=== PATIENT | male | born 2000 | race Caucasian/White ===

== ENCOUNTER 2021-04-22 14:16 | Inpatient (IN) | payer MEDICAID ==
[~2021-04-22] VITALS: Ht 188 cm; Wt 64.6 kg
[2021-04-22] MEDS ORDERED: LORazepam 2 MG TABLET PO PRN (20:00)
[2021-04-22] MEDS ORDERED: HALOPERIDOL 5 MG TABLET PO PRN (20:00)
[2021-04-22] MEDS ORDERED: INFLUENZA VIRUS VACCINE QVS 2021-22 (6MO+)/PF 60 MCG/0.5 ML SYRINGE IM. ONE (20:00)
[2021-04-23 00:57] VITALS: BP 126/86
[2021-04-23] MEDS ORDERED: HALOPERIDOL LACTATE 5 MG/ML VIAL ONE (02:13)
[2021-04-23] MEDS ORDERED: LORazepam 2 MG/ML VIAL ONE (02:13)
[2021-04-23] MEDS ORDERED: DiphenhydrAMINE HCL 50 MG/ML VIAL ONE (02:13)
[2021-04-23] MEDS ORDERED: LORazepam 2 MG/ML VIAL IM ONE (02:15)
[2021-04-23] MEDS ORDERED: DiphenhydrAMINE HCL 50 MG/ML VIAL IM ONE (02:15)
[2021-04-23] MEDS ORDERED: HALOPERIDOL LACTATE 5 MG/ML VIAL IM ONE (02:15)
[2021-04-23 02:50] VITALS: BP 126/86
[2021-04-23] MEDS ORDERED: ONDANSETRON HCL 4 MG TABLET PO PRN (10:45)
[2021-04-23] MEDS ORDERED: BACITRACIN 28 GM OINTMENT TP PRN (10:45)
[2021-04-23] MEDS ORDERED: LOPERAMIDE HCL 2 MG CAPSULE PO PRN (10:45)
[2021-04-23] MEDS ORDERED: MAG HYDROX/AL HYDROX/SIMETH ES 30 ML SUSPENSION UDCUP PO PRN (10:45)
[2021-04-23] MEDS ORDERED: ALBUTEROL SULFATE HFA 90 MCG/PUFF 8 GM INHALER IH PRN (10:45)
[2021-04-23] MEDS ORDERED: PETROLATUM,WHITE 28 GM JELLY TP PRN (10:45)
[2021-04-23] MEDS ORDERED: DOCUSATE SODIUM 100 MG CAPSULE PO PRN (10:45)
[2021-04-23] MEDS ORDERED: OMEPRAZOLE 20 MG CAPSULE PO PRN (10:45)
[2021-04-23] MEDS ORDERED: BENZOCAINE/MENTHOL LOZENGE PO PRN (10:45)
[2021-04-23] MEDS ORDERED: CloNIDine HCL 0.1 MG TABLET PO PRN (10:45)
[2021-04-23] MEDS ORDERED: ACETAMINOPHEN 325 MG TABLET PO PRN (10:45)
[2021-04-23] MEDS ORDERED: IBUPROFEN 600 MG TABLET PO PRN (10:45)
[2021-04-23] MEDS ORDERED: MAGNESIUM HYDROXIDE SUSPENSION 30 ML UDCUP PO PRN (10:45)
[2021-04-23 16:35] VITALS: BP 114/79
[2021-04-23] MEDS: ZOLPIDEM TARTRATE 10 MG TABLET PO PRN (20:12)
[2021-04-24 00:49] VITALS: BP 114/78
[2021-04-24 07:49] LABS: APPEARANCE,URINE TURBID (CLEAR); GLUCOSE, URINE (UA) NEGATIVE (NEGATIVE); KETONES,URINE NEGATIVE (NEGATIVE); LEUKOCYTE ESTERASE ,URINE NEGATIVE (NEGATIVE); NITRATE,URINE NEGATIVE (NEGATIVE); OCCULT BLOOD,URINE NEGATIVE (NEGATIVE); PROTEIN,URINE TRACE (NEGATIVE); UROBILINOGEN,URINE 0.2 mg/dL (<=1.0)
[2021-04-24 07:55] LABS: AMPHET/METH SCREEN,URINE NEGATIVE (NEGATIVE); BARBITURATE SCREEN, URINE NEGATIVE (NEGATIVE); BENZODIAZEPINES SCREEN,URINE NEGATIVE (NEGATIVE); CANNABINOID SCREEN,URINE NEGATIVE (NEGATIVE); COCAINE SCREEN,URINE NEGATIVE (NEGATIVE); METHADONE SCREEN, URINE NEGATIVE (NEGATIVE); OPIATE SCREEN,URINE NEGATIVE (NEGATIVE)
[2021-04-24 07:59] LABS: PHENCYCLIDINE SCREEN,URINE NEGATIVE (NEGATIVE)
[2021-04-24 08:11] VITALS: BP 120/66
[2021-04-24 08:21] LABS: BILIRUBIN,URINE PRELIM. POSITIVE (NEGATIVE)
[2021-04-24 16:25] VITALS: BP 118/66
[2021-04-24] MEDS: ZOLPIDEM TARTRATE 10 MG TABLET PO PRN (22:38)
[2021-04-25 00:04] VITALS: BP 148/85
== END 2021-04-25 09:30 | disposition home or self-care (01) | DRG 750 ==
LOC: EDBD → B2S 20:01
PROVIDERS: ADMIT Psychiatry & Neurology Psychiatry; ATTEND Psychiatry & Neurology Psychiatry
DX: F25.9 Schizoaffective disorder, unspecified (principal); F32.A Depression, unspecified; F41.9 Anxiety disorder, unspecified; G47.00 Insomnia, unspecified; K59.00 Constipation, unspecified; Z20.822 Contact with and (suspected) exposure to COVID-19
CPT/HCPCS: 80307; 81003; 87081; 90686; J1200; J1630; J2060

== ENCOUNTER 2021-04-25 21:46 | Inpatient (IN) | payer MEDICAID, OTHER ==
[~2021-04-25] VITALS: Ht 188 cm; Wt 64.4 kg
[2021-04-25 22:27] LABS: BASOPHILS % (AUTO) 0.5 % (0.0-2.0); HEMATOCRIT 41.2 % (41-53); HEMOGLOBIN 14.2 g/dL (13.5-17.5); LYMPHOCYTES # (AUTO) 2.2 K/uL (1.0-4.8); LYMPHOCYTES % (AUTO) 43.6 % (22.0-44.0); MEAN CORPUSCULAR HEMOGLOBIN 30.6 pg (26.0-34.0); MEAN CORPUSCULAR HGB CONC 34.3 G/dL (31.0-37.0); MEAN CORPUSCULAR VOLUME 89 fL (80-100); MONOCYTES # (AUTO) 0.5 K/uL (0.1-1.0); MONOCYTES % (AUTO) 9.6 % (2.0-9.0); NEUTROPHILS # (AUTO) 2.2 K/uL (1.8-7.7); NEUTROPHILS % (AUTO) 45.3 % (40.0-70.0); PLATELET COUNT (AUTO) 194 K/uL (150-450); RED BLOOD CELL COUNT(AUTO) 4.62 MIL/uL (4.50-5.90); RED CELL DISTRIBUTION WIDTH 12.7 % (11.5-14.5)
[2021-04-25 22:29] LABS: COVID AG,FIA SOURCE NASOPHARYNGEAL
[2021-04-25 22:34] LABS: ANION GAP 8 mmol/L (8-16); CALCIUM, TOTAL 8.9 mg/dL (8.8-10.5); CARBON DIOXIDE 32 mmol/L (22-29); CHLORIDE 102 mmol/L (98-107); CREATININE 0.84 mg/dL (0.60-1.30); GLOMERULAR FILTR. RATE CALC > 60 mL/min (>60); GLUCOSE,RANDOM 97 mg/dL (70-110); POTASSIUM 4.4 mmol/L (3.5-5.1); SODIUM SERUM 142 mmol/L (136-145); UREA NITROGEN, BLOOD 15 mg/dL (7-18)
[2021-04-25 22:41] LABS: ALANINE AMINOTRANSFERASE 47 U/L (12-78); ALBUMIN 4.5 g/dL (3.4-5.0); ALKALINE PHOSPHATASE 66 U/L (46-116); ASPARTATE AMINOTRANSFERASE 21 U/L (15-37); BILIRUBIN,TOTAL 0.5 mg/dL (0.1-1.0); TOTAL PROTEIN, SERUM 7.9 g/dL (6.4-8.2)
[2021-04-25] MEDS ORDERED: HALOPERIDOL 5 MG TABLET PO ONE (23:30)
[2021-04-25] MEDS ORDERED: LORazepam 2 MG TABLET PO ONE (23:30)
[2021-04-26 03:00] LABS: CHOL/HDL RATIO 2.1 (4.2-7.3); CHOLESTEROL 154 mg/dL (131-200); HDL CHOLESTEROL 72 mg/dL (40-60); LDL CHOL (CALC.) 74 mg/dL (0-130); TRIGLYCERIDES 39 mg/dL (15-150)
[2021-04-26 03:52] VITALS: BP 109/70
[2021-04-26] MEDS ORDERED: INFLUENZA VIRUS VACCINE QVS 2021-22 (6MO+)/PF 60 MCG/0.5 ML SYRINGE IM. ONE (06:00)
[2021-04-26] MEDS ORDERED: PETROLATUM,WHITE 28 GM JELLY TP PRN (06:30)
[2021-04-26] MEDS ORDERED: ONDANSETRON HCL 4 MG TABLET PO PRN (06:30)
[2021-04-26] MEDS ORDERED: BENZOCAINE/MENTHOL LOZENGE PO PRN (06:30)
[2021-04-26] MEDS ORDERED: CloNIDine HCL 0.1 MG TABLET PO PRN (06:30)
[2021-04-26] MEDS ORDERED: BACITRACIN 28 GM OINTMENT TP PRN (06:30)
[2021-04-26] MEDS ORDERED: MAG HYDROX/AL HYDROX/SIMETH ES 30 ML SUSPENSION UDCUP PO PRN (06:30)
[2021-04-26] MEDS ORDERED: ALBUTEROL SULFATE HFA 90 MCG/PUFF 8 GM INHALER IH PRN (06:30)
[2021-04-26] MEDS ORDERED: LOPERAMIDE HCL 2 MG CAPSULE PO PRN (06:30)
[2021-04-26] MEDS ORDERED: ACETAMINOPHEN 325 MG TABLET PO PRN (06:30)
[2021-04-26] MEDS ORDERED: IBUPROFEN 600 MG TABLET PO PRN (06:30)
[2021-04-26] MEDS ORDERED: OMEPRAZOLE 20 MG CAPSULE PO PRN (06:30)
[2021-04-26] MEDS ORDERED: MAGNESIUM HYDROXIDE SUSPENSION 30 ML UDCUP PO PRN (06:30)
[2021-04-26] MEDS ORDERED: DOCUSATE SODIUM 100 MG CAPSULE PO PRN (06:30)
[2021-04-26 08:48] VITALS: BP 113/70
[2021-04-26] MEDS: CITALOPRAM HYDROBROMIDE 20 MG TABLET PO SCH (10:16)
[2021-04-26 16:15] VITALS: BP 116/76
[2021-04-26] MEDS: ZOLPIDEM TARTRATE 10 MG TABLET PO PRN (20:22)
[2021-04-26] MEDS: LORazepam 2 MG TABLET PO PRN (22:36)
[2021-04-27 00:15] VITALS: BP 136/87
[2021-04-27 07:42] LABS: FREE T4 (FREE THYROXINE) 1.58 ng/dL (0.76-1.46); THYROID STIMULATING HORMONE 2.06 uIU/mL (0.36-3.74)
[2021-04-27 08:33] VITALS: BP 114/70
[2021-04-27] MEDS: CITALOPRAM HYDROBROMIDE 20 MG TABLET PO SCH (08:36)
[2021-04-27] MEDS: MULTIVITAMINS WITH MINERALS, THERAPEUTIC TABLET PO SCH (08:36)
[2021-04-27 16:23] VITALS: BP 109/73
[2021-04-27] MEDS: ZOLPIDEM TARTRATE 10 MG TABLET PO PRN (20:22)
[2021-04-28] VITALS: BP 125/80
[2021-04-28] MEDS: LORazepam 2 MG TABLET PO PRN ×2 (00:01→18:16)
[2021-04-28 08:23] VITALS: BP 123/74
[2021-04-28] MEDS: CITALOPRAM HYDROBROMIDE 20 MG TABLET PO SCH (08:48)
[2021-04-28] MEDS: MULTIVITAMINS WITH MINERALS, THERAPEUTIC TABLET PO SCH (08:48)
[2021-04-28 16:34] VITALS: BP 106/75
[2021-04-28] MEDS: HALOPERIDOL 5 MG TABLET PO PRN (20:20)
[2021-04-29 00:44] VITALS: BP 119/78
[2021-04-29 08:27] VITALS: BP 120/74
[2021-04-29] MEDS: CITALOPRAM HYDROBROMIDE 20 MG TABLET PO SCH (10:46)
[2021-04-29] MEDS: MULTIVITAMINS WITH MINERALS, THERAPEUTIC TABLET PO SCH (10:46)
[2021-04-29 16:30] VITALS: BP 120/72
[2021-04-29] MEDS: ZOLPIDEM TARTRATE 10 MG TABLET PO PRN (20:01)
[2021-04-30 01:08] VITALS: BP 121/74
[2021-04-30 08:19] LABS: COVID AG,FIA SOURCE NASOPHARYNGEAL
[2021-04-30 08:29] VITALS: BP 113/60
[2021-04-30] MEDS: MULTIVITAMINS WITH MINERALS, THERAPEUTIC TABLET PO SCH (09:00)
[2021-04-30] MEDS: CITALOPRAM HYDROBROMIDE 20 MG TABLET PO SCH (09:07)
[2021-04-30] MEDS: LORazepam 2 MG TABLET PO PRN ×2 (09:08→20:06)
[2021-04-30] MEDS: HALOPERIDOL 5 MG TABLET PO PRN (10:09)
[2021-04-30 16:32] VITALS: BP 119/67
[2021-05-01 00:17] VITALS: BP 106/63
[2021-05-01 08:18] VITALS: BP 113/71
[2021-05-01] MEDS: CITALOPRAM HYDROBROMIDE 20 MG TABLET PO SCH (08:38)
[2021-05-01] MEDS: MULTIVITAMINS WITH MINERALS, THERAPEUTIC TABLET PO SCH (08:43)
[2021-05-01] MEDS: HALOPERIDOL 5 MG TABLET PO PRN (10:39)
[2021-05-01 16:22] VITALS: BP 117/72
[2021-05-01] MEDS: LORazepam 2 MG TABLET PO PRN (16:43)
[2021-05-02 00:29] VITALS: BP 121/80
[2021-05-02] MEDS: HALOPERIDOL 5 MG TABLET PO PRN (04:40)
[2021-05-02 08:20] VITALS: BP 110/61
[2021-05-02] MEDS: CITALOPRAM HYDROBROMIDE 20 MG TABLET PO SCH (08:36)
[2021-05-02] MEDS: MULTIVITAMINS WITH MINERALS, THERAPEUTIC TABLET PO SCH (08:37)
[2021-05-02] MEDS ORDERED: DiphenhydrAMINE HCL 50 MG/ML VIAL IM ONE (10:15)
[2021-05-02 16:12] VITALS: BP 130/74
[2021-05-02] MEDS: RisperiDONE 1 MG TABLET PO SCH (17:05)
[2021-05-02] MEDS: BENZTROPINE MESYLATE 1 MG TABLET PO SCH (17:05)
[2021-05-03 00:39] VITALS: BP 106/65
[2021-05-03] MEDS: ZOLPIDEM TARTRATE 10 MG TABLET PO PRN (00:43)
[2021-05-03] MEDS: LORazepam 2 MG TABLET PO PRN (00:43)
[2021-05-03 08:14] VITALS: BP 107/66
[2021-05-03] MEDS: MULTIVITAMINS WITH MINERALS, THERAPEUTIC TABLET PO SCH (09:23)
[2021-05-03] MEDS: RisperiDONE 1 MG TABLET PO SCH ×2 (09:23→16:53)
[2021-05-03] MEDS: CITALOPRAM HYDROBROMIDE 20 MG TABLET PO SCH (09:23)
[2021-05-03] MEDS: BENZTROPINE MESYLATE 1 MG TABLET PO SCH ×2 (09:23→16:53)
[2021-05-03 16:26] VITALS: BP 110/70
[2021-05-04 00:08] VITALS: BP 134/87
[2021-05-04] MEDS: LORazepam 2 MG TABLET PO PRN ×2 (00:11→09:38)
[2021-05-04] MEDS: ZOLPIDEM TARTRATE 10 MG TABLET PO PRN ×2 (00:11→22:05)
[2021-05-04 08:25] VITALS: BP 105/61
[2021-05-04] MEDS: RisperiDONE 1 MG TABLET PO SCH ×2 (09:37→16:51)
[2021-05-04] MEDS: MULTIVITAMINS WITH MINERALS, THERAPEUTIC TABLET PO SCH (09:37)
[2021-05-04] MEDS: BENZTROPINE MESYLATE 1 MG TABLET PO SCH ×2 (09:37→16:51)
[2021-05-04] MEDS: CITALOPRAM HYDROBROMIDE 20 MG TABLET PO SCH (09:37)
[2021-05-04 16:20] VITALS: BP 110/67
[2021-05-05 04:24] VITALS: BP 115/72
[2021-05-05 08:27] VITALS: BP 116/77
[2021-05-05] MEDS: MULTIVITAMINS WITH MINERALS, THERAPEUTIC TABLET PO SCH (08:33)
[2021-05-05] MEDS: CITALOPRAM HYDROBROMIDE 20 MG TABLET PO SCH (08:33)
[2021-05-05] MEDS: BENZTROPINE MESYLATE 1 MG TABLET PO SCH (08:33)
[2021-05-05] MEDS: RisperiDONE 1 MG TABLET PO SCH (08:33)
[2021-05-05] MEDS ORDERED: BENZ1TAB10 PO (12:24)
[2021-05-05] MEDS ORDERED: RISP1TAB48 PO (12:24)
[2021-05-05] MEDS ORDERED: CITA-144 PO (12:24)
== END 2021-05-05 15:43 | disposition home or self-care (01) | DRG 754 ==
LOC: EDBD 21:49 → EMS 21:49 → B2S 23:32
PROVIDERS: ADMIT Psychiatry & Neurology Psychiatry; ATTEND Psychiatry & Neurology Psychiatry
DX: F32.9 Major depressive disorder, single episode, unspecified (principal); F25.9 Schizoaffective disorder, unspecified; R45.851 Suicidal ideations; F41.9 Anxiety disorder, unspecified; G47.00 Insomnia, unspecified; K59.00 Constipation, unspecified; F12.90 Cannabis use, unspecified, uncomplicated; Z20.822 Contact with and (suspected) exposure to COVID-19
CPT/HCPCS: 80053; 80061; 83036; 84439; 84443; 85025; 87081; 99285; G0480; J1200

== ENCOUNTER 2021-05-06 10:43 | Inpatient (IN) | payer MEDICAID, OTHER ==
[~2021-05-06] VITALS: Ht 188 cm; Wt 63.2 kg
[~2021-05-06 10:43] MED LIST: BENZ1TAB10 PO; CITA-144 PO; RISP1TAB48 PO
[2021-05-06] MEDS: HALOPERIDOL 5 MG TABLET PO ONE ×2 (11:29→11:33)
[2021-05-06 11:30] LABS: COVID AG,FIA SOURCE NASOPHARYNGEAL
[2021-05-06] MEDS ORDERED: HALOPERIDOL LACTATE 5 MG/ML VIAL IM ONE ×2 (12:45→15:45)
[2021-05-06 14:13] LABS: BASOPHILS % (AUTO) 0.1 % (0.0-2.0); EOSINOPHILS % (AUTO) 0.1 % (1.0-6.0); HEMATOCRIT 43.7 % (41-53); HEMOGLOBIN 14.6 g/dL (13.5-17.5); LYMPHOCYTES # (AUTO) 0.9 K/uL (1.0-4.8); LYMPHOCYTES % (AUTO) 15.7 % (22.0-44.0); MEAN CORPUSCULAR HEMOGLOBIN 30.2 pg (26.0-34.0); MEAN CORPUSCULAR HGB CONC 33.4 G/dL (31.0-37.0); MEAN CORPUSCULAR VOLUME 91 fL (80-100); MONOCYTES # (AUTO) 0.3 K/uL (0.1-1.0); MONOCYTES % (AUTO) 6.3 % (2.0-9.0); NEUTROPHILS # (AUTO) 4.3 K/uL (1.8-7.7); NEUTROPHILS % (AUTO) 77.8 % (40.0-70.0); PLATELET COUNT (AUTO) 234 K/uL (150-450); RED BLOOD CELL COUNT(AUTO) 4.83 MIL/uL (4.50-5.90); RED CELL DISTRIBUTION WIDTH 13.2 % (11.5-14.5)
[2021-05-06 14:22] LABS: ANION GAP 9 mmol/L (8-16); CALCIUM, TOTAL 8.9 mg/dL (8.8-10.5); CARBON DIOXIDE 30 mmol/L (22-29); CHLORIDE 102 mmol/L (98-107); CREATININE 0.83 mg/dL (0.60-1.30); GLOMERULAR FILTR. RATE CALC > 60 mL/min (>60); GLUCOSE,RANDOM 94 mg/dL (70-110); POTASSIUM 4.3 mmol/L (3.5-5.1); SODIUM SERUM 141 mmol/L (136-145); UREA NITROGEN, BLOOD 15 mg/dL (7-18)
[2021-05-06 14:28] LABS: ALANINE AMINOTRANSFERASE 47 U/L (12-78); ALBUMIN 4.6 g/dL (3.4-5.0); ALKALINE PHOSPHATASE 75 U/L (46-116); ASPARTATE AMINOTRANSFERASE 30 U/L (15-37); BILIRUBIN,TOTAL 0.6 mg/dL (0.1-1.0); TOTAL PROTEIN, SERUM 8.2 g/dL (6.4-8.2)
[2021-05-06] MEDS ORDERED: HALOPERIDOL 5 MG TABLET PO PRN (15:30)
[2021-05-06] MEDS ORDERED: ZOLPIDEM TARTRATE 10 MG TABLET PO PRN (15:30)
[2021-05-06] MEDS ORDERED: DiphenhydrAMINE HCL 50 MG/ML VIAL IM ONE (15:45)
[2021-05-06] MEDS ORDERED: LORazepam 2 MG/ML VIAL IM ONE (15:45)
[2021-05-06 17:20] VITALS: BP 140/80
[2021-05-06] MEDS ORDERED: INFLUENZA VIRUS VACCINE QVS 2021-22 (6MO+)/PF 60 MCG/0.5 ML SYRINGE IM. ONE (17:30)
[2021-05-06] MEDS: BENZTROPINE MESYLATE 1 MG TABLET PO SCH (17:52)
[2021-05-06] MEDS: RisperiDONE 3 MG TABLET PO SCH (17:52)
[2021-05-07 08:03] VITALS: BP 135/96
[2021-05-07] MEDS: RisperiDONE 3 MG TABLET PO SCH ×2 (08:10→16:17)
[2021-05-07] MEDS: BENZTROPINE MESYLATE 1 MG TABLET PO SCH ×2 (08:10→16:17)
[2021-05-07] MEDS: CITALOPRAM HYDROBROMIDE 20 MG TABLET PO SCH (08:11)
[2021-05-07 16:25] VITALS: BP 108/70
[2021-05-08 08:06] VITALS: BP 112/68
[2021-05-08] MEDS: BENZTROPINE MESYLATE 1 MG TABLET PO SCH ×2 (08:17→17:12)
[2021-05-08] MEDS: RisperiDONE 3 MG TABLET PO SCH ×2 (08:17→17:11)
[2021-05-08] MEDS: CITALOPRAM HYDROBROMIDE 20 MG TABLET PO SCH (08:17)
[2021-05-08 08:26] LABS: PHOSPHORUS 4.1 mg/dL (2.5-4.9)
[2021-05-08] MEDS: MULTIVITAMINS WITH MINERALS, THERAPEUTIC TABLET PO SCH (09:00)
[2021-05-08] MEDS: THIAMINE 100 MG TABLET PO SCH (09:00)
[2021-05-08] MEDS: TRIAMCINOLONE 0.1% 15 GM OINTMENT TP SCH ×2 (09:20→17:12)
[2021-05-08] MEDS: LORazepam 2 MG TABLET PO PRN (11:39)
[2021-05-08 16:14] VITALS: BP 123/78
[2021-05-09 08:14] VITALS: BP 81/103
[2021-05-09] MEDS: CITALOPRAM HYDROBROMIDE 20 MG TABLET PO SCH (08:23)
[2021-05-09] MEDS: BENZTROPINE MESYLATE 1 MG TABLET PO SCH ×2 (08:24→16:09)
[2021-05-09] MEDS: RisperiDONE 3 MG TABLET PO SCH ×2 (08:24→16:09)
[2021-05-09] MEDS: MULTIVITAMINS WITH MINERALS, THERAPEUTIC TABLET PO SCH (08:29)
[2021-05-09] MEDS: TRIAMCINOLONE 0.1% 15 GM OINTMENT TP SCH ×2 (08:29→16:10)
[2021-05-09] MEDS: THIAMINE 100 MG TABLET PO SCH (08:29)
[2021-05-09 16:15] VITALS: BP 113/70
[2021-05-10 08:06] VITALS: BP 138/95
[2021-05-10] MEDS: TRIAMCINOLONE 0.1% 15 GM OINTMENT TP SCH ×2 (09:25→16:34)
[2021-05-10] MEDS: RisperiDONE 3 MG TABLET PO SCH ×2 (09:30→16:33)
[2021-05-10] MEDS: THIAMINE 100 MG TABLET PO SCH (09:30)
[2021-05-10] MEDS: CITALOPRAM HYDROBROMIDE 20 MG TABLET PO SCH (09:30)
[2021-05-10] MEDS: MULTIVITAMINS WITH MINERALS, THERAPEUTIC TABLET PO SCH (09:30)
[2021-05-10] MEDS: BENZTROPINE MESYLATE 1 MG TABLET PO SCH ×2 (09:31→16:33)
[2021-05-10 16:02] VITALS: BP 123/76
[2021-05-11 08:00] VITALS: BP 113/69
[2021-05-11] MEDS: CITALOPRAM HYDROBROMIDE 20 MG TABLET PO SCH ×2 (09:00→10:55)
[2021-05-11] MEDS: BENZTROPINE MESYLATE 1 MG TABLET PO SCH ×3 (09:00→13:49)
[2021-05-11] MEDS: MULTIVITAMINS WITH MINERALS, THERAPEUTIC TABLET PO SCH ×3 (09:00→13:49)
[2021-05-11] MEDS: RisperiDONE 3 MG TABLET PO SCH ×3 (09:00→13:49)
[2021-05-11] MEDS: TRIAMCINOLONE 0.1% 15 GM OINTMENT TP SCH ×3 (09:00→16:01)
[2021-05-11] MEDS: THIAMINE 100 MG TABLET PO SCH ×3 (09:00→13:48)
[2021-05-11 16:06] VITALS: BP 101/76
[2021-05-12 07:12] LABS: COVID AG,FIA SOURCE NASAL SWAB
[2021-05-12 08:32] VITALS: BP 127/74
[2021-05-12] MEDS: RisperiDONE 3 MG TABLET PO SCH ×2 (08:33→16:37)
[2021-05-12] MEDS: CITALOPRAM HYDROBROMIDE 20 MG TABLET PO SCH (08:33)
[2021-05-12] MEDS: MULTIVITAMINS WITH MINERALS, THERAPEUTIC TABLET PO SCH (08:34)
[2021-05-12] MEDS: TRIAMCINOLONE 0.1% 15 GM OINTMENT TP SCH ×2 (08:34→16:52)
[2021-05-12] MEDS: BENZTROPINE MESYLATE 1 MG TABLET PO SCH ×2 (08:34→16:37)
[2021-05-12] MEDS: THIAMINE 100 MG TABLET PO SCH (08:34)
[2021-05-12 16:04] VITALS: BP 112/76
[2021-05-13] MEDS: BENZTROPINE MESYLATE 1 MG TABLET PO SCH ×2 (08:14→16:39)
[2021-05-13] MEDS: RisperiDONE 3 MG TABLET PO SCH ×2 (08:14→16:39)
[2021-05-13] MEDS: CITALOPRAM HYDROBROMIDE 20 MG TABLET PO SCH (08:14)
[2021-05-13] MEDS: THIAMINE 100 MG TABLET PO SCH (08:14)
[2021-05-13 08:15] VITALS: BP 105/67
[2021-05-13] MEDS: TRIAMCINOLONE 0.1% 15 GM OINTMENT TP SCH ×2 (08:23→16:39)
[2021-05-13] MEDS: MULTIVITAMINS WITH MINERALS, THERAPEUTIC TABLET PO SCH (08:24)
[2021-05-13 16:09] VITALS: BP 104/66
[2021-05-14] MEDS: LORazepam 2 MG TABLET PO PRN (03:21)
[2021-05-14] MEDS: RisperiDONE 3 MG TABLET PO SCH ×2 (10:02→17:16)
[2021-05-14] MEDS: TRIAMCINOLONE 0.1% 15 GM OINTMENT TP SCH ×2 (10:02→17:17)
[2021-05-14] MEDS: BENZTROPINE MESYLATE 1 MG TABLET PO SCH ×2 (10:02→17:16)
[2021-05-14] MEDS: THIAMINE 100 MG TABLET PO SCH (10:02)
[2021-05-14] MEDS: MULTIVITAMINS WITH MINERALS, THERAPEUTIC TABLET PO SCH (10:02)
[2021-05-14] MEDS: CITALOPRAM HYDROBROMIDE 20 MG TABLET PO SCH (10:02)
[2021-05-14 16:27] VITALS: BP 104/65
[2021-05-15 08:55] VITALS: BP 131/77
[2021-05-15] MEDS: MULTIVITAMINS WITH MINERALS, THERAPEUTIC TABLET PO SCH (09:00)
[2021-05-15] MEDS: RisperiDONE 3 MG TABLET PO SCH ×2 (09:30→16:33)
[2021-05-15] MEDS: CITALOPRAM HYDROBROMIDE 20 MG TABLET PO SCH (09:30)
[2021-05-15] MEDS: BENZTROPINE MESYLATE 1 MG TABLET PO SCH ×2 (09:30→16:33)
[2021-05-15] MEDS: TRIAMCINOLONE 0.1% 15 GM OINTMENT TP SCH ×2 (09:32→16:43)
[2021-05-15] MEDS: THIAMINE 100 MG TABLET PO SCH (09:32)
[2021-05-15] MEDS: LORazepam 2 MG TABLET PO PRN (14:56)
[2021-05-15 16:30] VITALS: BP 149/79
[2021-05-16 08:01] VITALS: BP 115/69
[2021-05-16] MEDS: THIAMINE 100 MG TABLET PO SCH (08:40)
[2021-05-16] MEDS: BENZTROPINE MESYLATE 1 MG TABLET PO SCH (08:40)
[2021-05-16] MEDS: MULTIVITAMINS WITH MINERALS, THERAPEUTIC TABLET PO SCH (08:40)
[2021-05-16] MEDS: RisperiDONE 3 MG TABLET PO SCH (08:40)
[2021-05-16] MEDS: CITALOPRAM HYDROBROMIDE 20 MG TABLET PO SCH (08:40)
[2021-05-16] MEDS: TRIAMCINOLONE 0.1% 15 GM OINTMENT TP SCH (08:41)
== END 2021-05-16 13:15 | disposition home or self-care (01) | DRG 750 ==
LOC: EMS 10:47 → 3EC 16:37
PROVIDERS: ADMIT Psychiatry & Neurology Psychiatry; ATTEND Psychiatry & Neurology Psychiatry
DX: F25.9 Schizoaffective disorder, unspecified (principal); R45.851 Suicidal ideations; G47.00 Insomnia, unspecified; K59.00 Constipation, unspecified; F41.9 Anxiety disorder, unspecified; F17.200 Nicotine dependence, unspecified, uncomplicated; Z20.822 Contact with and (suspected) exposure to COVID-19; F19.10 Other psychoactive substance abuse, uncomplicated; Z71.51 Drug abuse counseling and surveillance of drug abuser; Z71.6 Tobacco abuse counseling
CPT/HCPCS: 80053; 83735; 84100; 85025; 87081; 99285; G0480; J1200; J1630; J2060

== ENCOUNTER 2021-06-28 16:48 | Inpatient (IN) | payer MEDICAID, OTHER ==
[~2021-06-28] VITALS: Ht 188 cm; Wt 68.5 kg
[~2021-06-28 16:48] MED LIST changes: -CITA-144 PO; +OLAN10TA74 PO; +OLAN5TAB52 PO; -RISP1TAB48 PO
[2021-06-28 18:09] LABS: BASOPHILS % (AUTO) 0.4 % (0.0-2.0); HEMATOCRIT 39.9 % (41-53); HEMOGLOBIN 14.1 g/dL (13.5-17.5); LYMPHOCYTES # (AUTO) 1.7 K/uL (1.0-4.8); LYMPHOCYTES % (AUTO) 27.5 % (22.0-44.0); MEAN CORPUSCULAR HEMOGLOBIN 30.9 pg (26.0-34.0); MEAN CORPUSCULAR HGB CONC 35.4 G/dL (31.0-37.0); MEAN CORPUSCULAR VOLUME 87 fL (80-100); MONOCYTES # (AUTO) 0.3 K/uL (0.1-1.0); MONOCYTES % (AUTO) 5.1 % (2.0-9.0); PLATELET COUNT (AUTO) 185 K/uL (150-450); RED BLOOD CELL COUNT(AUTO) 4.58 MIL/uL (4.50-5.90); RED CELL DISTRIBUTION WIDTH 12.6 % (11.5-14.5)
[2021-06-28 18:17] LABS: ANION GAP 8 mmol/L (8-16); CALCIUM, TOTAL 8.7 mg/dL (8.8-10.5); CARBON DIOXIDE 31 mmol/L (22-29); CHLORIDE 105 mmol/L (98-107); CREATININE 0.74 mg/dL (0.60-1.30); GLOMERULAR FILTR. RATE CALC > 60 mL/min (>60); GLUCOSE,RANDOM 154 mg/dL (70-110); POTASSIUM 3.8 mmol/L (3.5-5.1); SODIUM SERUM 144 mmol/L (136-145); UREA NITROGEN, BLOOD 16 mg/dL (7-18)
[2021-06-28 18:22] LABS: ALANINE AMINOTRANSFERASE 97 U/L (12-78); ALBUMIN 4.1 g/dL (3.4-5.0); ALKALINE PHOSPHATASE 70 U/L (46-116); ASPARTATE AMINOTRANSFERASE 18 U/L (15-37); BILIRUBIN,TOTAL 0.3 mg/dL (0.1-1.0); TOTAL PROTEIN, SERUM 7.7 g/dL (6.4-8.2)
[2021-06-28 20:36] LABS: COVID AG,FIA SOURCE NASOPHARYNGEAL
[2021-06-28] MEDS ORDERED: LORazepam 2 MG TABLET PO PRN (21:00)
[2021-06-28] MEDS ORDERED: OLANZapine 5 MG RAPDIS TABLET PO PRN (21:00)
[2021-06-28] MEDS ORDERED: ZOLPIDEM TARTRATE 10 MG TABLET PO PRN (21:00)
[2021-06-29 00:47] LABS: AMPHET/METH SCREEN,URINE NEGATIVE (NEGATIVE); APPEARANCE,URINE CLEAR (CLEAR); BARBITURATE SCREEN, URINE NEGATIVE (NEGATIVE); BENZODIAZEPINES SCREEN,URINE NEGATIVE (NEGATIVE); BILIRUBIN,URINE NEGATIVE (NEGATIVE); CANNABINOID SCREEN,URINE NEGATIVE (NEGATIVE); COCAINE SCREEN,URINE NEGATIVE (NEGATIVE); GLUCOSE, URINE (UA) NEGATIVE (NEGATIVE); KETONES,URINE NEGATIVE (NEGATIVE); LEUKOCYTE ESTERASE ,URINE NEGATIVE (NEGATIVE); METHADONE SCREEN, URINE NEGATIVE (NEGATIVE); NITRATE,URINE NEGATIVE (NEGATIVE); OCCULT BLOOD,URINE NEGATIVE (NEGATIVE); OPIATE SCREEN,URINE NEGATIVE (NEGATIVE); PROTEIN,URINE NEGATIVE (NEGATIVE); UROBILINOGEN,URINE 0.2 mg/dL (<=1.0)
[2021-06-29 00:51] LABS: PHENCYCLIDINE SCREEN,URINE NEGATIVE (NEGATIVE)
[2021-06-29 02:21] LABS: CHOL/HDL RATIO 2.6 (4.2-7.3); CHOLESTEROL 162 mg/dL (131-200); HDL CHOLESTEROL 62 mg/dL (40-60); LDL CHOL (CALC.) 90 mg/dL (0-130); TRIGLYCERIDES 51 mg/dL (15-150)
[2021-06-29 02:42] VITALS: BP 128/77
[2021-06-29] MEDS ORDERED: INFLUENZA VIRUS VACCINE QVS 2021-22 (6MO+)/PF 60 MCG/0.5 ML SYRINGE IM. ONE (04:15)
[2021-06-29 08:16] VITALS: BP 110/67
[2021-06-29] MEDS ORDERED: TUBERCULIN, PURIFIED PROTEIN DERIVATIVE 5 TU/0.1 ML SYRINGE ID ONE (10:00)
[2021-06-29] MEDS ORDERED: LOPERAMIDE HCL 2 MG CAPSULE PO PRN (10:00)
[2021-06-29] MEDS ORDERED: PROMETHAZINE HCL 25 MG TABLET PO PRN (10:00)
[2021-06-29] MEDS ORDERED: MAG HYDROX/AL HYDROX/SIMETH ES 30 ML SUSPENSION UDCUP PO PRN (10:00)
[2021-06-29] MEDS ORDERED: FluPHENAZine HCL 5 MG TABLET PO PRN (10:00)
[2021-06-29] MEDS ORDERED: GuaiFENesin/D-METHORPHAN [SUGAR-FREE] 200-20MG/10 ML SYRUP UDCUP PO PRN (10:00)
[2021-06-29] MEDS ORDERED: FluPHENAZine DECANOATE 25 MG/ML IM ONE (10:00)
[2021-06-29] MEDS ORDERED: ACETAMINOPHEN 325 MG TABLET PO PRN (10:00)
[2021-06-29] MEDS ORDERED: MAGNESIUM HYDROXIDE SUSPENSION 30 ML UDCUP PO PRN (10:00)
[2021-06-29] MEDS ORDERED: HydrOXYzine PAMOATE 50 MG CAPSULE PO PRN (10:00)
[2021-06-29 16:17] VITALS: BP 115/70
[2021-06-29] MEDS: TRIHEXYPHENIDYL HCL 5 MG TABLET PO SCH (16:48)
[2021-06-29] MEDS: THIAMINE 100 MG TABLET PO SCH (16:48)
[2021-06-29] MEDS: MELATONIN 5 MG TABLET PO SCH (20:41)
[2021-06-29] MEDS ORDERED: FluPHENAZine HCL 10 MG TABLET PO SCH (21:00)
[2021-06-30 00:50] VITALS: BP 102/63
[2021-06-30 07:44] LABS: CHOL/HDL RATIO 2.4 (4.2-7.3); FREE T4 (FREE THYROXINE) 1.21 ng/dL (0.76-1.46); THYROID STIMULATING HORMONE 3.62 uIU/mL (0.36-3.74)
[2021-06-30 08:21] VITALS: BP 121/73
[2021-06-30] MEDS: THIAMINE 100 MG TABLET PO SCH ×2 (09:41→16:37)
[2021-06-30] MEDS: FOLIC ACID 1 MG TABLET PO SCH (09:41)
[2021-06-30] MEDS: TRIHEXYPHENIDYL HCL 5 MG TABLET PO SCH ×3 (09:41→16:37)
[2021-06-30] MEDS: MULTIVITAMINS WITH MINERALS, THERAPEUTIC TABLET PO SCH (09:42)
[2021-06-30] MEDS: NALTREXONE HCL 50 MG TABLET PO SCH (09:42)
[2021-06-30] MEDS: FLUoxetine HCL 20 MG CAPSULE PO SCH (09:42)
[2021-06-30] MEDS: OMEGA-3/DHA/EPA/FISH OIL 1,000 MG CAPSULE PO SCH (09:42)
[2021-06-30] MEDS ORDERED: OMEG-135 PO (15:57)
[2021-06-30] MEDS ORDERED: PROZ20 PO (15:57)
[2021-06-30] MEDS ORDERED: NALT50TA PO (15:57)
[2021-06-30] MEDS ORDERED: TRIH5TAB3 PO (15:57)
[2021-06-30] MEDS ORDERED: FLUP10TA8 PO (15:57)
[2021-06-30] MEDS ORDERED: FLUD25I IM (15:57)
[2021-06-30] MEDS ORDERED: MELA5TAB40 PO (15:57)
[2021-06-30 16:17] VITALS: BP 120/78
[2021-06-30] MEDS: MELATONIN 5 MG TABLET PO SCH (20:38)
[2021-06-30] MEDS ORDERED: FluPHENAZine HCL 10 MG TABLET PO SCH (21:00)
[2021-07-01 00:26] VITALS: BP 118/71
[2021-07-01 08:29] VITALS: BP 109/77
[2021-07-01 08:41] LABS: GLUCOMETER DEV NAME(LOC) BV2S.; GLUCOSE,POINT OF CARE 92 MG/DL (70-110)
[2021-07-01] MEDS: FLUoxetine HCL 20 MG CAPSULE PO SCH (08:57)
[2021-07-01] MEDS: TRIHEXYPHENIDYL HCL 5 MG TABLET PO SCH (08:57)
[2021-07-01] MEDS: MULTIVITAMINS WITH MINERALS, THERAPEUTIC TABLET PO SCH (08:57)
[2021-07-01] MEDS: NALTREXONE HCL 50 MG TABLET PO SCH (08:57)
[2021-07-01] MEDS: THIAMINE 100 MG TABLET PO SCH (08:57)
[2021-07-01] MEDS: FOLIC ACID 1 MG TABLET PO SCH (08:57)
[2021-07-01] MEDS: OMEGA-3/DHA/EPA/FISH OIL 1,000 MG CAPSULE PO SCH (08:57)
[2021-07-13] MEDS ORDERED: FluPHENAZine DECANOATE 25 MG/ML IM SCH (09:00)
== END 2021-07-01 10:35 | disposition home or self-care (01) | DRG 750 ==
LOC: EMS 16:49 → B2S 21:00
PROVIDERS: ADMIT Psychiatry & Neurology Psychiatry; ATTEND Psychiatry & Neurology Psychiatry
DX: F25.1 Schizoaffective disorder, depressive type (principal); R45.851 Suicidal ideations; Z91.14 Patient's other noncompliance with medication regimen; F17.210 Nicotine dependence, cigarettes, uncomplicated; Z20.822 Contact with and (suspected) exposure to COVID-19; Z55.9 Problems related to education and literacy, unspecified; Z59.9 Problem related to housing and economic circumstances, unspecified; Z63.9 Problem related to primary support group, unspecified; Z65.3 Problems related to other legal circumstances; Z88.8 Allergy status to other drugs, medicaments and biological substances
CPT/HCPCS: 80053; 80061; 81003; 82962; 84439; 84443; 85025; 86592; 99285; G0480; J2680; Q9967

== ENCOUNTER 2021-08-12 20:50 | Outpatient (CLI) | payer OTHER ==
[~2021-08-12 20:50] MED LIST changes: -BENZ1TAB10 PO; +FLUD25I IM; +FLUP10TA8 PO; +MELA5TAB40 PO; +NALT50TA PO; -OLAN10TA74 PO; -OLAN5TAB52 PO; +OMEG-108 PO; +PROZ20 PO; +TRIH5TAB3 PO
[2021-08-12 22:16] LABS: GLUCOMETER DEV NAME(LOC) POC.BV
== END 2021-08-12 22:50 | disposition left against medical advice (07) ==
LOC: CSU 20:50
PROVIDERS: ATTEND Psychiatry & Neurology Psychiatry
DX: R44.0 Auditory hallucinations (principal); F34.9 Persistent mood [affective] disorder, unspecified; F41.9 Anxiety disorder, unspecified; Z20.822 Contact with and (suspected) exposure to COVID-19; Z72.89 Other problems related to lifestyle; Z88.8 Allergy status to other drugs, medicaments and biological substances
CPT/HCPCS: 90792

== ENCOUNTER 2021-08-13 06:29 | Emergency (ER) | payer OTHER ==
[~2021-08-13] VITALS: Ht 188 cm; Wt 69.1 kg
[~2021-08-13 06:29] MED LIST changes: -OMEG-108 PO; +OMEG-135 PO
[2021-08-13 07:42] LABS: BASOPHILS % (AUTO) 0.2 % (0.0-2.0); EOSINOPHILS % (AUTO) 0.4 % (1.0-6.0); HEMOGLOBIN 13.8 g/dL (13.5-17.5); LYMPHOCYTES # (AUTO) 0.7 K/uL (1.0-4.8); LYMPHOCYTES % (AUTO) 12.3 % (22.0-44.0); MEAN CORPUSCULAR HEMOGLOBIN 30.8 pg (26.0-34.0); MEAN CORPUSCULAR HGB CONC 35.5 G/dL (31.0-37.0); MEAN CORPUSCULAR VOLUME 87 fL (80-100); MONOCYTES # (AUTO) 0.4 K/uL (0.1-1.0); MONOCYTES % (AUTO) 6.7 % (2.0-9.0); NEUTROPHILS # (AUTO) 4.6 K/uL (1.8-7.7); NEUTROPHILS % (AUTO) 80.4 % (40.0-70.0); PLATELET COUNT (AUTO) 182 K/uL (150-450); RED BLOOD CELL COUNT(AUTO) 4.49 MIL/uL (4.50-5.90); RED CELL DISTRIBUTION WIDTH 12.2 % (11.5-14.5)
[2021-08-13] MEDS ORDERED: OLANZapine 5 MG RAPDIS TABLET PO ONE (07:45)
[2021-08-13 07:51] LABS: ANION GAP 6 mmol/L (8-16); CALCIUM, TOTAL 9.2 mg/dL (8.8-10.5); CARBON DIOXIDE 32 mmol/L (22-29); CHLORIDE 101 mmol/L (98-107); CREATININE 0.74 mg/dL (0.60-1.30); GLOMERULAR FILTR. RATE CALC > 60 mL/min (>60); GLUCOSE,RANDOM 114 mg/dL (70-110); POTASSIUM 4.2 mmol/L (3.5-5.1); SODIUM SERUM 139 mmol/L (136-145); UREA NITROGEN, BLOOD 18 mg/dL (7-18)
[2021-08-13 08:02] LABS: ALANINE AMINOTRANSFERASE 46 U/L (12-78); ALBUMIN 4.5 g/dL (3.4-5.0); ALKALINE PHOSPHATASE 71 U/L (46-116); ASPARTATE AMINOTRANSFERASE 16 U/L (15-37); BILIRUBIN,TOTAL 0.6 mg/dL (0.1-1.0); TOTAL PROTEIN, SERUM 8.2 g/dL (6.4-8.2)
[2021-08-13 08:09] VITALS: BP 115/76
== END 2021-08-13 08:24 | disposition home or self-care (01) ==
LOC: EMS 06:29
DX: F20.9 Schizophrenia, unspecified (principal); Z88.8 Allergy status to other drugs, medicaments and biological substances; Z79.899 Other long term (current) drug therapy
CPT/HCPCS: 36415; 80053; 85025; 99284; G0480

== ENCOUNTER 2023-04-14 22:55 | Inpatient (IN) | payer MEDICAID ==
[~2023-04-14] VITALS: Ht 188 cm; Wt 107.3 kg
[~2023-04-14 22:55] MED LIST changes: -FLUD25I IM; +FLUP25VI5 IM
[2023-04-14 23:39] LABS: BASOPHILS % (AUTO) 0.3 % (0.0-2.0); EOSINOPHILS % (AUTO) 0.6 % (1.0-6.0); HEMATOCRIT 41.2 % (41-53); LYMPHOCYTES # (AUTO) 1.8 K/uL (1.0-4.8); LYMPHOCYTES % (AUTO) 25.5 % (22.0-44.0); MEAN CORPUSCULAR HEMOGLOBIN 30.1 pg (26.0-34.0); MEAN CORPUSCULAR VOLUME 89 fL (80-100); MONOCYTES # (AUTO) 0.6 K/uL (0.1-1.0); MONOCYTES % (AUTO) 8.1 % (2.0-9.0); NEUTROPHILS # (AUTO) 4.6 K/uL (1.8-7.7); NEUTROPHILS % (AUTO) 65.5 % (40.0-70.0); PLATELET COUNT (AUTO) 267 K/uL (150-450); RED BLOOD CELL COUNT(AUTO) 4.66 MIL/uL (4.50-5.90); RED CELL DISTRIBUTION WIDTH 13.4 % (11.5-14.5); WHITE BLOOD COUNT (AUTO) 7.1 K/uL (4.5-11.0)
[2023-04-14 23:50] LABS: ANION GAP 12 mmol/L (8-16); CALCIUM, TOTAL 8.9 mg/dL (8.8-10.5); CARBON DIOXIDE 27 mmol/L (22-29); CHLORIDE 104 mmol/L (98-107); CREATININE 0.84 mg/dL (0.60-1.30); GLOMERULAR FILTR. RATE CALC > 60 mL/min (>60); GLUCOSE,RANDOM 100 mg/dL (70-110); POTASSIUM 3.8 mmol/L (3.5-5.1); SODIUM SERUM 143 mmol/L (136-145); UREA NITROGEN, BLOOD 18 mg/dL (7-18)
[2023-04-14 23:52] LABS: ALCOHOL, BLOOD (SERUM) < 3 mg/dL (0-10)
[2023-04-14 23:55] LABS: ALANINE AMINOTRANSFERASE 150 U/L (12-78); ALBUMIN 4.2 g/dL (3.4-5.0); ALKALINE PHOSPHATASE 96 U/L (46-116); ASPARTATE AMINOTRANSFERASE 58 U/L (15-37); BILIRUBIN,TOTAL 0.6 mg/dL (0.1-1.0); TOTAL PROTEIN, SERUM 8.4 g/dL (6.4-8.2)
[2023-04-15] MEDS ORDERED: OLANZapine 5 MG RAPDIS TABLET PO PRN (00:30)
[2023-04-15] MEDS ORDERED: LORazepam 2 MG TABLET PO PRN (00:30)
[2023-04-15] MEDS ORDERED: ZOLPIDEM TARTRATE 10 MG TABLET PO PRN (00:30)
[2023-04-15] MEDS ORDERED: ARIP15TA27 PO (00:52)
[2023-04-15 01:30] LABS: COVID AG,FIA SOURCE NASAL SWAB
[2023-04-15 01:37] LABS: SARS-COV2 (COVID) ANTIGEN,FIA Negative (Negative)
[2023-04-15 02:45] VITALS: BP 135/80; PULSE 86; RESP 18; TEMP 97.2
[2023-04-15] MEDS ORDERED: INFLUENZA VIRUS VACCINE QVS 2023-24 (6MO+)/PF 60 MCG/0.5 ML SYRINGE IM. ONE (04:30)
[2023-04-15 08:42] VITALS: BP 137/89; PULSE 99; RESP 16; TEMP 98.9
[2023-04-15] MEDS ORDERED: FLUO20CA36 PO (13:00)
[2023-04-15] MEDS: ARIPiprazole 15 MG TABLET PO SCH (14:05)
[2023-04-15] MEDS: FLUoxetine HCL 20 MG CAPSULE PO SCH (14:05)
[2023-04-15] MEDS: FluPHENAZine HCL 10 MG TABLET PO SCH ×2 (14:23→21:15)
[2023-04-15 21:58] VITALS: BP 134/82; PULSE 88; RESP 16; TEMP 97.4
[2023-04-16] MEDS: FluPHENAZine HCL 10 MG TABLET PO SCH ×2 (10:49→21:22)
[2023-04-16] MEDS: ARIPiprazole 15 MG TABLET PO SCH (10:50)
[2023-04-16] MEDS: FLUoxetine HCL 20 MG CAPSULE PO SCH (10:50)
[2023-04-16 13:36] VITALS: BP 151/89; PULSE 87; RESP 16; TEMP 97.7
[2023-04-17 12:08] VITALS: BP 127/80; PULSE 88; RESP 18; TEMP 97
[2023-04-17] MEDS: FLUoxetine HCL 20 MG CAPSULE PO SCH (12:14)
[2023-04-17] MEDS: FluPHENAZine HCL 10 MG TABLET PO SCH ×2 (12:14→21:01)
[2023-04-17] MEDS: ARIPiprazole 15 MG TABLET PO SCH (12:14)
[2023-04-17 21:52] VITALS: BP 150/100; PULSE 81; RESP 19; TEMP 97.5
[2023-04-18] MEDS: FluPHENAZine HCL 10 MG TABLET PO SCH (08:45)
[2023-04-18] MEDS: FLUoxetine HCL 20 MG CAPSULE PO SCH (08:46)
[2023-04-18] MEDS: ARIPiprazole 15 MG TABLET PO SCH (08:46)
[2023-04-18 10:05] VITALS: BP 137/76; PULSE 87; RESP 16; TEMP 98.4
== END 2023-04-18 14:43 | disposition home or self-care (01) | DRG 750 ==
LOC: EMS 22:56 → 3EC 04-15 01:53
PROVIDERS: ADMIT Psychiatry & Neurology Child & Adolescent Psychiatry; ATTEND Psychiatry & Neurology Child & Adolescent Psychiatry
DX: F25.1 Schizoaffective disorder, depressive type (principal); R45.851 Suicidal ideations; Z20.822 Contact with and (suspected) exposure to COVID-19; F41.9 Anxiety disorder, unspecified; G47.00 Insomnia, unspecified; R74.01 Elevation of levels of liver transaminase levels; Z88.8 Allergy status to other drugs, medicaments and biological substances; Z59.00 Homelessness unspecified
CPT/HCPCS: 80053; 84443; 85025; 99285; G0480

== ENCOUNTER 2023-05-07 02:54 | Inpatient (IN) | payer MEDICAID, OTHER ==
[~2023-05-07] VITALS: Ht 182.9 cm; Wt 103.4 kg
[~2023-05-07 02:54] MED LIST changes: +ARIP15TA27 PO; +FLUO20CA36 PO; -PROZ20 PO
[2023-05-07] MEDS ORDERED: LORazepam 2 MG TABLET PO PRN (05:15)
[2023-05-07] MEDS ORDERED: ZOLPIDEM TARTRATE 10 MG TABLET PO PRN (05:15)
[2023-05-07 05:31] LABS: BASOPHILS % (AUTO) 0.4 % (0.0-2.0); HEMATOCRIT 42.4 % (41-53); HEMOGLOBIN 14.4 g/dL (13.5-17.5); LYMPHOCYTES # (AUTO) 1.6 K/uL (1.0-4.8); LYMPHOCYTES % (AUTO) 22.2 % (22.0-44.0); MEAN CORPUSCULAR HEMOGLOBIN 30.3 pg (26.0-34.0); MEAN CORPUSCULAR HGB CONC 33.9 G/dL (31.0-37.0); MEAN CORPUSCULAR VOLUME 89 fL (80-100); MONOCYTES # (AUTO) 0.5 K/uL (0.1-1.0); MONOCYTES % (AUTO) 7.5 % (2.0-9.0); NEUTROPHILS % (AUTO) 68.9 % (40.0-70.0); PLATELET COUNT (AUTO) 267 K/uL (150-450); RED BLOOD CELL COUNT(AUTO) 4.75 MIL/uL (4.50-5.90); RED CELL DISTRIBUTION WIDTH 13.8 % (11.5-14.5); WHITE BLOOD COUNT (AUTO) 7.2 K/uL (4.5-11.0)
[2023-05-07 05:35] LABS: ANION GAP 5 mmol/L (8-16); CALCIUM, TOTAL 8.9 mg/dL (8.8-10.5); CARBON DIOXIDE 31 mmol/L (22-29); CHLORIDE 103 mmol/L (98-107); CREATININE 0.87 mg/dL (0.60-1.30); GLOMERULAR FILTR. RATE CALC > 60 mL/min (>60); GLUCOSE,RANDOM 105 mg/dL (70-110); POTASSIUM 3.9 mmol/L (3.5-5.1); SODIUM SERUM 139 mmol/L (136-145); UREA NITROGEN, BLOOD 13 mg/dL (7-18)
[2023-05-07 05:39] LABS: ALCOHOL, BLOOD (SERUM) < 3 mg/dL (0-10)
[2023-05-07 05:42] LABS: ALANINE AMINOTRANSFERASE 103 U/L (12-78); ALBUMIN 3.8 g/dL (3.4-5.0); ALKALINE PHOSPHATASE 88 U/L (46-116); ASPARTATE AMINOTRANSFERASE 27 U/L (15-37); BILIRUBIN,TOTAL 0.2 mg/dL (0.1-1.0); TOTAL PROTEIN, SERUM 7.9 g/dL (6.4-8.2)
[2023-05-07 07:40] LABS: COVID AG,FIA SOURCE NASAL SWAB
[2023-05-07 08:15] LABS: SARS-COV2 (COVID) ANTIGEN,FIA Negative (Negative)
[2023-05-07] MEDS ORDERED: INFLUENZA VIRUS VACCINE QVS 2023-24 (6MO+)/PF 60 MCG/0.5 ML SYRINGE IM. ONE (22:30)
[2023-05-07 23:13] VITALS: BP 126/79; PULSE 78; RESP 18; TEMP 97.3; O2SAT 100
[2023-05-08 08:53] VITALS: BP 129/88; PULSE 100; RESP 18; TEMP 98.2; O2SAT 94
[2023-05-08] MEDS: FluPHENAZine HCL 10 MG TABLET PO SCH ×2 (09:45→21:00)
[2023-05-08] MEDS: ARIPiprazole 15 MG TABLET PO SCH (09:45)
[2023-05-08] MEDS: FLUoxetine HCL 20 MG CAPSULE PO SCH (09:45)
[2023-05-08] MEDS ORDERED: ALBUTEROL SULFATE HFA 90 MCG/PUFF 8 GM INHALER IH PRN (14:00)
[2023-05-08] MEDS ORDERED: MAG HYDROX/ALUMINUM HYD/SIMETH ES 30 ML SUSPENSION UDCUP PO PRN (14:00)
[2023-05-08] MEDS ORDERED: GuaiFENesin/D-METHORPHAN [SUGAR-FREE] 200-20MG/10 ML SYRUP UDCUP PO PRN (14:00)
[2023-05-08] MEDS ORDERED: ONDANSETRON HCL 4 MG TABLET PO PRN (14:00)
[2023-05-08] MEDS ORDERED: DOCUSATE SODIUM 100 MG CAPSULE PO PRN (14:00)
[2023-05-08] MEDS ORDERED: IBUPROFEN 400 MG TABLET PO PRN (14:00)
[2023-05-08] MEDS ORDERED: MAGNESIUM HYDROXIDE SUSPENSION 30 ML UDCUP PO PRN (14:00)
[2023-05-08] MEDS ORDERED: LOPERAMIDE HCL 2 MG CAPSULE PO PRN (14:00)
[2023-05-08] MEDS ORDERED: NICOTINE 14 MG/24 HOUR PATCH TD PRN (14:00)
[2023-05-08] MEDS ORDERED: PETROLATUM,WHITE 28 GM JELLY TP PRN (14:00)
[2023-05-08] MEDS ORDERED: CloNIDine HCL 0.1 MG TABLET PO PRN (14:00)
[2023-05-08] MEDS ORDERED: ACETAMINOPHEN 325 MG TABLET PO PRN (14:00)
[2023-05-08 20:19] VITALS: RESP 20; TEMP 98
[2023-05-08] MEDS: MELATONIN 5 MG TABLET PO SCH (21:00)
[2023-05-09] MEDS: FLUoxetine HCL 20 MG CAPSULE PO SCH ×3 (09:00→12:51)
[2023-05-09] MEDS: OMEGA-3/DHA/EPA/FISH OIL 1,000 MG CAPSULE PO SCH ×4 (09:00→12:56)
[2023-05-09] MEDS: ARIPiprazole 15 MG TABLET PO SCH ×6 (09:00→13:00)
[2023-05-09] MEDS: FluPHENAZine HCL 10 MG TABLET PO SCH ×4 (09:00→12:52)
[2023-05-09 13:14] VITALS: RESP 17
[2023-05-09 20:12] VITALS: RESP 18; TEMP 98.1; O2SAT 98
[2023-05-09] MEDS: MELATONIN 5 MG TABLET PO SCH (21:00)
[2023-05-10] MEDS: OMEGA-3/DHA/EPA/FISH OIL 1,000 MG CAPSULE PO SCH (09:00)
[2023-05-10] MEDS: ARIPiprazole 15 MG TABLET PO SCH (09:00)
[2023-05-10] MEDS ORDERED: HALOPERIDOL LACTATE 5 MG/ML VIAL ONE (11:36)
[2023-05-10] MEDS ORDERED: LORazepam 2 MG/ML VIAL ONE (11:36)
[2023-05-10] MEDS ORDERED: DiphenhydrAMINE HCL 50 MG/ML VIAL ONE (11:36)
[2023-05-10] MEDS ORDERED: LORazepam 2 MG/ML VIAL IM ONE (11:45)
[2023-05-10] MEDS ORDERED: DiphenhydrAMINE HCL 50 MG/ML VIAL IM ONE (11:45)
[2023-05-10] MEDS ORDERED: HALOPERIDOL LACTATE 5 MG/ML VIAL IM ONE (11:45)
[2023-05-10 15:00] VITALS: BP 124/89; PULSE 90; RESP 17; TEMP 97.4; O2SAT 97
[2023-05-10 19:00] VITALS: BP 138/81; PULSE 98; RESP 18; TEMP 98.3; O2SAT 98
[2023-05-10] MEDS: FluPHENAZine HCL 10 MG TABLET PO SCH (20:39)
[2023-05-10] MEDS: MELATONIN 5 MG TABLET PO SCH (20:39)
[2023-05-10 23:42] VITALS: BP 135/85; PULSE 95; RESP 18; TEMP 97.4; O2SAT 98
[2023-05-11 03:00] VITALS: BP 127/75; PULSE 71; RESP 18; TEMP 97.5; O2SAT 97
[2023-05-11 07:12] VITALS: BP 132/78; PULSE 82; RESP 16; TEMP 98.2; O2SAT 99
[2023-05-11] MEDS: FluPHENAZine HCL 10 MG TABLET PO SCH ×2 (10:09→21:39)
[2023-05-11] MEDS: ARIPiprazole 15 MG TABLET PO SCH (10:09)
[2023-05-11] MEDS: FLUoxetine HCL 20 MG CAPSULE PO SCH (10:09)
[2023-05-11] MEDS: OMEGA-3/DHA/EPA/FISH OIL 1,000 MG CAPSULE PO SCH (10:09)
[2023-05-11 11:19] VITALS: BP 124/72; PULSE 78; RESP 17; TEMP 97.8; O2SAT 97
[2023-05-11 17:26] VITALS: BP 132/87; PULSE 82; RESP 18; TEMP 97.8; O2SAT 97
[2023-05-11 20:20] VITALS: BP 133/90; PULSE 87; RESP 18; TEMP 97.8; O2SAT 98
[2023-05-11] MEDS: MELATONIN 5 MG TABLET PO SCH (21:36)
[2023-05-12] VITALS: BP 116/76; PULSE 67; RESP 18; TEMP 97.6; O2SAT 98
[2023-05-12 04:00] VITALS: BP 124/75; PULSE 83; RESP 18; TEMP 97.3; O2SAT 98
[2023-05-12 08:19] VITALS: BP 139/79; PULSE 81; RESP 17; TEMP 97.8; O2SAT 98
[2023-05-12 08:50] LABS: CHOL/HDL RATIO 3.4 (4.2-7.3); THYROID STIMULATING HORMONE 1.61 uIU/mL (0.36-3.74)
[2023-05-12 08:57] LABS: HEMOGLOBIN A1C 5.2 % (3.8-5.6)
[2023-05-12] MEDS: FLUoxetine HCL 20 MG CAPSULE PO SCH (09:22)
[2023-05-12] MEDS: OMEGA-3/DHA/EPA/FISH OIL 1,000 MG CAPSULE PO SCH (09:23)
[2023-05-12] MEDS: FluPHENAZine HCL 10 MG TABLET PO SCH ×2 (09:23→20:47)
[2023-05-12] MEDS: ARIPiprazole 15 MG TABLET PO SCH (09:23)
[2023-05-12 11:00] VITALS: BP 120/80; PULSE 97; RESP 18; TEMP 97.5; O2SAT 97
[2023-05-12 15:00] VITALS: BP 123/70; PULSE 82; RESP 18; TEMP 96; O2SAT 95
[2023-05-12] MEDS: MELATONIN 5 MG TABLET PO SCH (20:47)
[2023-05-13 08:17] VITALS: BP 111/66; PULSE 75; RESP 18; TEMP 97.3; O2SAT 96
[2023-05-13] MEDS: FLUoxetine HCL 20 MG CAPSULE PO SCH (08:51)
[2023-05-13] MEDS: ARIPiprazole 15 MG TABLET PO SCH (08:51)
[2023-05-13] MEDS: FluPHENAZine HCL 10 MG TABLET PO SCH ×2 (08:51→20:15)
[2023-05-13] MEDS: OMEGA-3/DHA/EPA/FISH OIL 1,000 MG CAPSULE PO SCH (08:51)
[2023-05-13 20:00] VITALS: BP 125/84; PULSE 74; RESP 18; TEMP 97.6; O2SAT 97
[2023-05-13] MEDS: MELATONIN 5 MG TABLET PO SCH (20:15)
[2023-05-14 08:18] VITALS: BP 112/70; PULSE 90; RESP 17; TEMP 98.3; O2SAT 95
[2023-05-14] MEDS: OMEGA-3/DHA/EPA/FISH OIL 1,000 MG CAPSULE PO SCH (08:42)
[2023-05-14] MEDS: ARIPiprazole 15 MG TABLET PO SCH (08:42)
[2023-05-14] MEDS: FluPHENAZine HCL 10 MG TABLET PO SCH ×2 (08:42→20:06)
[2023-05-14] MEDS: FLUoxetine HCL 20 MG CAPSULE PO SCH (08:42)
[2023-05-14] MEDS: MELATONIN 5 MG TABLET PO SCH (20:06)
[2023-05-14 20:15] VITALS: BP 123/69; PULSE 94; RESP 18; TEMP 98.3; O2SAT 97
[2023-05-15 08:57] VITALS: BP 119/66; PULSE 87; RESP 17; TEMP 97.5; O2SAT 96
[2023-05-15] MEDS: FluPHENAZine HCL 10 MG TABLET PO SCH ×2 (09:09→20:12)
[2023-05-15] MEDS: ARIPiprazole 15 MG TABLET PO SCH (09:09)
[2023-05-15] MEDS: FLUoxetine HCL 20 MG CAPSULE PO SCH (09:09)
[2023-05-15] MEDS: OMEGA-3/DHA/EPA/FISH OIL 1,000 MG CAPSULE PO SCH (09:09)
[2023-05-15 20:03] VITALS: BP 115/85; PULSE 81; RESP 17; TEMP 97.7; O2SAT 98
[2023-05-15] MEDS: MELATONIN 5 MG TABLET PO SCH (20:12)
[2023-05-16 08:00] VITALS: BP 106/66; PULSE 100; RESP 18; TEMP 98.2; O2SAT 98
[2023-05-16] MEDS: OMEGA-3/DHA/EPA/FISH OIL 1,000 MG CAPSULE PO SCH (09:00)
[2023-05-16] MEDS: ARIPiprazole 15 MG TABLET PO SCH (09:00)
[2023-05-16] MEDS: FluPHENAZine HCL 10 MG TABLET PO SCH ×2 (09:00→21:01)
[2023-05-16] MEDS: FLUoxetine HCL 20 MG CAPSULE PO SCH (09:00)
[2023-05-16] MEDS: MELATONIN 5 MG TABLET PO SCH (21:01)
[2023-05-17 00:33] VITALS: RESP 18; TEMP 98
[2023-05-17] MEDS: OMEGA-3/DHA/EPA/FISH OIL 1,000 MG CAPSULE PO SCH (08:27)
[2023-05-17] MEDS: ARIPiprazole 15 MG TABLET PO SCH (08:27)
[2023-05-17] MEDS: FLUoxetine HCL 20 MG CAPSULE PO SCH (08:27)
[2023-05-17] MEDS: FluPHENAZine HCL 10 MG TABLET PO SCH ×2 (08:27→20:17)
[2023-05-17 14:07] VITALS: RESP 18
[2023-05-17] MEDS: MELATONIN 5 MG TABLET PO SCH (20:17)
[2023-05-17 20:59] VITALS: BP 131/70; PULSE 82; RESP 20; TEMP 98.1; O2SAT 97
[2023-05-18] MEDS: ARIPiprazole 15 MG TABLET PO SCH (08:46)
[2023-05-18] MEDS: FLUoxetine HCL 20 MG CAPSULE PO SCH (08:46)
[2023-05-18] MEDS: FluPHENAZine HCL 10 MG TABLET PO SCH (08:46)
[2023-05-18] MEDS: OMEGA-3/DHA/EPA/FISH OIL 1,000 MG CAPSULE PO SCH (08:46)
[2023-05-18 09:10] VITALS: BP 113/65; PULSE 84; RESP 18; TEMP 98.9; O2SAT 97
[2023-05-18] MEDS ORDERED: FLUP10TA28 PO ×2 (13:45→15:13)
[2023-05-18] MEDS ORDERED: FLUO20CA36 PO (15:13)
[2023-05-18] MEDS ORDERED: ARIP15TA27 PO (15:13)
== END 2023-05-18 14:00 | disposition home or self-care (01) | DRG 750 ==
LOC: EMS 02:55 → B2S 20:01
PROVIDERS: ADMIT Psychiatry & Neurology Psychiatry; ATTEND Psychiatry & Neurology Child & Adolescent Psychiatry
DX: F25.1 Schizoaffective disorder, depressive type (principal); Z91.148 Patient's other noncompliance with medication regimen for other reason; F41.9 Anxiety disorder, unspecified; Z20.822 Contact with and (suspected) exposure to COVID-19; G47.00 Insomnia, unspecified; K59.00 Constipation, unspecified; Z88.8 Allergy status to other drugs, medicaments and biological substances; Z79.899 Other long term (current) drug therapy
CPT/HCPCS: 80053; 80061; 83036; 84443; 85025; 99285; G0480; J1200; J1630; J2060; Q9967

== ENCOUNTER 2023-05-23 19:49 | Inpatient (IN) | payer MEDICAID ==
[~2023-05-23] VITALS: Ht 190.5 cm; Wt 104.1 kg
[~2023-05-23 19:49] MED LIST changes: +FLUP10TA28 PO; -FLUP10TA8 PO; -FLUP25VI5 IM; -NALT50TA PO; -TRIH5TAB3 PO
[2023-05-23] MEDS ORDERED: ZOLPIDEM TARTRATE 10 MG TABLET PO PRN (20:00)
[2023-05-23] MEDS ORDERED: LORazepam 2 MG/ML VIAL ONE (20:15)
[2023-05-23] MEDS ORDERED: DiphenhydrAMINE HCL 50 MG/ML VIAL ONE (20:15)
[2023-05-23] MEDS ORDERED: HALOPERIDOL LACTATE 5 MG/ML VIAL IM ONE (20:15)
[2023-05-23] MEDS ORDERED: DiphenhydrAMINE HCL 50 MG/ML VIAL IM ONE (20:15)
[2023-05-23] MEDS ORDERED: LORazepam 2 MG/ML VIAL IM ONE (20:15)
[2023-05-23] MEDS ORDERED: HALOPERIDOL LACTATE 5 MG/ML VIAL ONE (20:15)
[2023-05-23] MEDS ORDERED: INFLUENZA VIRUS VACCINE QVS 2023-24 (6MO+)/PF 60 MCG/0.5 ML SYRINGE IM. ONE (20:30)
[2023-05-23 21:06] LABS: GLUCOMETER DEV NAME(LOC) POC.BV; POC SARS-COV2 AG, FIA NEGATIVE (NEGATIVE)
[2023-05-23 23:39] VITALS: BP 139/92; PULSE 100; RESP 18; TEMP 98.2; O2SAT 99
[2023-05-24] MEDS ORDERED: PETROLATUM,WHITE 28 GM JELLY TP PRN (07:30)
[2023-05-24] MEDS ORDERED: DOCUSATE SODIUM 100 MG CAPSULE PO PRN (07:30)
[2023-05-24] MEDS ORDERED: ACETAMINOPHEN 325 MG TABLET PO PRN (07:30)
[2023-05-24] MEDS ORDERED: IBUPROFEN 400 MG TABLET PO PRN (07:30)
[2023-05-24] MEDS ORDERED: LOPERAMIDE HCL 2 MG CAPSULE PO PRN (07:30)
[2023-05-24] MEDS ORDERED: CloNIDine HCL 0.1 MG TABLET PO PRN (07:30)
[2023-05-24] MEDS ORDERED: MAGNESIUM HYDROXIDE SUSPENSION 30 ML UDCUP PO PRN (07:30)
[2023-05-24] MEDS ORDERED: ONDANSETRON HCL 4 MG TABLET PO PRN (07:30)
[2023-05-24] MEDS ORDERED: ALBUTEROL SULFATE HFA 90 MCG/PUFF 8 GM INHALER IH PRN (07:30)
[2023-05-24] MEDS ORDERED: GuaiFENesin/D-METHORPHAN [SUGAR-FREE] 200-20MG/10 ML SYRUP UDCUP PO PRN (07:30)
[2023-05-24] MEDS ORDERED: MAG HYDROX/ALUMINUM HYD/SIMETH ES 30 ML SUSPENSION UDCUP PO PRN (07:30)
[2023-05-24] MEDS ORDERED: NICOTINE 14 MG/24 HOUR PATCH TD PRN (07:30)
[2023-05-24 08:32] VITALS: BP 135/81; PULSE 100; RESP 18; TEMP 97.8; O2SAT 97
[2023-05-24] MEDS: OMEGA-3/DHA/EPA/FISH OIL 1,000 MG CAPSULE PO SCH (10:21)
[2023-05-24] MEDS ORDERED: HALOPERIDOL LACTATE 5 MG/ML VIAL IM ONE (18:00)
[2023-05-24] MEDS ORDERED: LORazepam 2 MG/ML VIAL IM ONE (18:00)
[2023-05-24] MEDS ORDERED: DiphenhydrAMINE HCL 50 MG/ML VIAL IM ONE (18:00)
[2023-05-24 20:05] VITALS: BP 142/82; PULSE 104; RESP 18; TEMP 97.7; O2SAT 97
[2023-05-24] MEDS: MELATONIN 5 MG TABLET PO SCH (20:44)
[2023-05-25 08:26] VITALS: BP 127/88; PULSE 100; RESP 18; TEMP 97.5; O2SAT 98
[2023-05-25] MEDS: OMEGA-3/DHA/EPA/FISH OIL 1,000 MG CAPSULE PO SCH (08:57)
[2023-05-25 20:12] VITALS: BP 132/69; PULSE 81; RESP 18; TEMP 97.3; O2SAT 97
[2023-05-25] MEDS: BENZTROPINE MESYLATE 2 MG TABLET PO SCH (20:32)
[2023-05-25] MEDS: FluPHENAZine HCL 10 MG TABLET PO SCH (20:32)
[2023-05-25] MEDS: MELATONIN 5 MG TABLET PO SCH (20:32)
[2023-05-25 21:07] VITALS: BP 148/84; PULSE 72; RESP 17; TEMP 97; O2SAT 97
[2023-05-26 07:56] LABS: BASOPHILS % (AUTO) 0.2 % (0.0-2.0); HEMATOCRIT 41.6 % (41-53); HEMOGLOBIN 14.1 g/dL (13.5-17.5); LYMPHOCYTES # (AUTO) 2.4 K/uL (1.0-4.8); LYMPHOCYTES % (AUTO) 30.7 % (22.0-44.0); MEAN CORPUSCULAR HEMOGLOBIN 30.3 pg (26.0-34.0); MEAN CORPUSCULAR HGB CONC 33.9 G/dL (31.0-37.0); MEAN CORPUSCULAR VOLUME 89 fL (80-100); MONOCYTES # (AUTO) 0.7 K/uL (0.1-1.0); MONOCYTES % (AUTO) 8.9 % (2.0-9.0); NEUTROPHILS # (AUTO) 4.6 K/uL (1.8-7.7); NEUTROPHILS % (AUTO) 59.2 % (40.0-70.0); PLATELET COUNT (AUTO) 255 K/uL (150-450); RED BLOOD CELL COUNT(AUTO) 4.66 MIL/uL (4.50-5.90); RED CELL DISTRIBUTION WIDTH 13.6 % (11.5-14.5); WHITE BLOOD COUNT (AUTO) 7.8 K/uL (4.5-11.0)
[2023-05-26 08:06] LABS: HEMOGLOBIN A1C 5.2 % (3.8-5.6)
[2023-05-26 08:18] VITALS: BP 133/60; PULSE 92; RESP 18; TEMP 97.3; O2SAT 91
[2023-05-26] MEDS: LORazepam 2 MG TABLET PO PRN ×2 (08:19→17:31)
[2023-05-26] MEDS: OMEGA-3/DHA/EPA/FISH OIL 1,000 MG CAPSULE PO SCH (08:19)
[2023-05-26] MEDS: HALOPERIDOL 5 MG TABLET PO PRN ×2 (08:27→17:31)
[2023-05-26 08:31] LABS: ALANINE AMINOTRANSFERASE 91 U/L (12-78); ALBUMIN 3.9 g/dL (3.4-5.0); ALKALINE PHOSPHATASE 99 U/L (46-116); ANION GAP 8 mmol/L (8-16); ASPARTATE AMINOTRANSFERASE 21 U/L (15-37); BILIRUBIN,TOTAL 0.3 mg/dL (0.1-1.0); CALCIUM, TOTAL 8.9 mg/dL (8.8-10.5); CARBON DIOXIDE 30 mmol/L (22-29); CHLORIDE 104 mmol/L (98-107); CHOLESTEROL 176 mg/dL (131-200); CREATININE 0.85 mg/dL (0.60-1.30); FREE T4 (FREE THYROXINE) 1.23 ng/dL (0.76-1.46); GLOMERULAR FILTR. RATE CALC > 60 mL/min (>60); GLUCOSE,RANDOM 89 mg/dL (70-110); HDL CHOLESTEROL 58 mg/dL (40-60); LDL CHOL (CALC.) 85 mg/dL (0-130); POTASSIUM 3.7 mmol/L (3.5-5.1); SODIUM SERUM 142 mmol/L (136-145); THYROID STIMULATING HORMONE 4.76 uIU/mL (0.36-3.74); TOTAL PROTEIN, SERUM 7.9 g/dL (6.4-8.2); TRIGLYCERIDES 163 mg/dL (15-150); UREA NITROGEN, BLOOD 11 mg/dL (7-18)
[2023-05-26 20:18] VITALS: RESP 18; TEMP 97.9
[2023-05-26] MEDS: BENZTROPINE MESYLATE 2 MG TABLET PO SCH (20:48)
[2023-05-26] MEDS: FluPHENAZine HCL 10 MG TABLET PO SCH (20:48)
[2023-05-26] MEDS: MELATONIN 5 MG TABLET PO SCH (20:48)
[2023-05-27] MEDS: OMEGA-3/DHA/EPA/FISH OIL 1,000 MG CAPSULE PO SCH (08:13)
[2023-05-27 08:35] VITALS: BP 106/55; PULSE 86; RESP 16; TEMP 97.6
[2023-05-27] MEDS ORDERED: FLUP10TA28 PO (09:50)
[2023-05-27] MEDS ORDERED: BENZ2TAB71 PO (09:51)
== END 2023-05-27 11:05 | disposition home or self-care (01) | DRG 750 ==
LOC: B3A 20:06
PROVIDERS: ADMIT Psychiatry & Neurology Psychiatry; ATTEND Psychiatry & Neurology Psychiatry
DX: F20.9 Schizophrenia, unspecified (principal); R45.851 Suicidal ideations; F41.9 Anxiety disorder, unspecified; G47.00 Insomnia, unspecified; Z20.822 Contact with and (suspected) exposure to COVID-19; Z79.899 Other long term (current) drug therapy
CPT/HCPCS: 80053; 80061; 83036; 84439; 84443; 85025; 87081; J1200; J1630; J2060; Q9967

== ENCOUNTER 2023-06-11 16:38 | Inpatient (IN) | payer MEDICAID ==
[~2023-06-11] VITALS: Ht 180.3 cm; Wt 101.7 kg
[~2023-06-11 16:38] MED LIST changes: -ARIP15TA27 PO; +BENZ2TAB71 PO; -FLUO20CA36 PO; -MELA5TAB40 PO; -OMEG-135 PO
[2023-06-11] MEDS ORDERED: HALOPERIDOL LACTATE 5 MG/ML VIAL IM ONE (17:30)
[2023-06-11] MEDS ORDERED: DiphenhydrAMINE HCL 50 MG/ML VIAL IM ONE (17:30)
[2023-06-11] MEDS ORDERED: LORazepam 2 MG/ML VIAL IM ONE (17:30)
[2023-06-11] MEDS ORDERED: ZOLPIDEM TARTRATE 10 MG TABLET PO PRN (17:45)
[2023-06-11 18:59] LABS: COVID AG,FIA SOURCE NASOPHARYNGEAL
[2023-06-11 19:20] LABS: SARS-COV2 (COVID) ANTIGEN,FIA Negative (Negative)
[2023-06-11 19:46] LABS: BASOPHILS % (AUTO) 0.5 % (0.0-2.0); EOSINOPHILS % (AUTO) 0.4 % (1.0-6.0); HEMATOCRIT 39.9 % (41-53); HEMOGLOBIN 13.9 g/dL (13.5-17.5); LYMPHOCYTES % (AUTO) 25.1 % (22.0-44.0); MEAN CORPUSCULAR HEMOGLOBIN 30.7 pg (26.0-34.0); MEAN CORPUSCULAR HGB CONC 34.7 G/dL (31.0-37.0); MEAN CORPUSCULAR VOLUME 89 fL (80-100); MONOCYTES # (AUTO) 0.6 K/uL (0.1-1.0); MONOCYTES % (AUTO) 15.5 % (2.0-9.0); NEUTROPHILS # (AUTO) 2.4 K/uL (1.8-7.7); NEUTROPHILS % (AUTO) 58.5 % (40.0-70.0); PLATELET COUNT (AUTO) 227 K/uL (150-450); RED BLOOD CELL COUNT(AUTO) 4.51 MIL/uL (4.50-5.90); RED CELL DISTRIBUTION WIDTH 13.8 % (11.5-14.5)
[2023-06-11 19:51] LABS: ANION GAP 5 mmol/L (8-16); CARBON DIOXIDE 31 mmol/L (22-29); CHLORIDE 102 mmol/L (98-107); CREATININE 0.83 mg/dL (0.60-1.30); GLOMERULAR FILTR. RATE CALC > 60 mL/min (>60); GLUCOSE,RANDOM 96 mg/dL (70-110); POTASSIUM 3.5 mmol/L (3.5-5.1); SODIUM SERUM 138 mmol/L (136-145); UREA NITROGEN, BLOOD 11 mg/dL (7-18)
[2023-06-11 19:55] LABS: ALCOHOL, BLOOD (SERUM) < 3 mg/dL (0-10)
[2023-06-11 19:57] LABS: ALANINE AMINOTRANSFERASE 87 U/L (12-78); ALBUMIN 3.4 g/dL (3.4-5.0); ALKALINE PHOSPHATASE 84 U/L (46-116); ASPARTATE AMINOTRANSFERASE 40 U/L (15-37); BILIRUBIN,TOTAL 0.5 mg/dL (0.1-1.0); TOTAL PROTEIN, SERUM 7.4 g/dL (6.4-8.2)
[2023-06-12] MEDS ORDERED: DOCUSATE SODIUM 100 MG CAPSULE PO PRN (09:30)
[2023-06-12] MEDS ORDERED: BENZOCAINE/MENTHOL LOZENGE PO PRN (09:30)
[2023-06-12] MEDS ORDERED: IBUPROFEN 600 MG TABLET PO PRN (09:30)
[2023-06-12] MEDS ORDERED: LOPERAMIDE HCL 2 MG CAPSULE PO PRN (09:30)
[2023-06-12] MEDS ORDERED: BACITRACIN 28 GM OINTMENT TP PRN (09:30)
[2023-06-12] MEDS ORDERED: CloNIDine HCL 0.1 MG TABLET PO PRN (09:30)
[2023-06-12] MEDS ORDERED: ACETAMINOPHEN 325 MG TABLET PO PRN (09:30)
[2023-06-12] MEDS ORDERED: OMEPRAZOLE 20 MG CAPSULE PO PRN (09:30)
[2023-06-12] MEDS ORDERED: MAGNESIUM HYDROXIDE SUSPENSION 30 ML UDCUP PO PRN (09:30)
[2023-06-12] MEDS ORDERED: ONDANSETRON HCL 4 MG TABLET PO PRN (09:30)
[2023-06-12] MEDS ORDERED: PETROLATUM,WHITE 28 GM JELLY TP PRN (09:30)
[2023-06-12] MEDS ORDERED: ALBUTEROL SULFATE HFA 90 MCG/PUFF 8 GM INHALER IH PRN (09:30)
[2023-06-12] MEDS ORDERED: MAG HYDROX/ALUMINUM HYD/SIMETH ES 30 ML SUSPENSION UDCUP PO PRN (09:30)
[2023-06-12 11:00] VITALS: BP 117/72; PULSE 96; RESP 18; TEMP 98.7
[2023-06-12] MEDS: LORazepam 2 MG TABLET PO PRN (18:39)
[2023-06-12] MEDS: HALOPERIDOL 5 MG TABLET PO PRN (18:39)
[2023-06-12] MEDS ORDERED: INFLUENZA VIRUS VACCINE QVS 2023-24 (6MO+)/PF 60 MCG/0.5 ML SYRINGE IM. ONE (19:00)
[2023-06-12 20:28] VITALS: RESP 18; TEMP 98.4
[2023-06-13 08:32] VITALS: BP 112/64; PULSE 70; RESP 18; TEMP 97.7; O2SAT 98
[2023-06-13 20:17] VITALS: RESP 20
[2023-06-13] MEDS: BENZTROPINE MESYLATE 2 MG TABLET PO SCH (21:00)
[2023-06-13] MEDS: FluPHENAZine HCL 10 MG TABLET PO SCH (21:00)
[2023-06-14 08:25] VITALS: BP 106/79; PULSE 82; RESP 18; TEMP 97.7; O2SAT 99
[2023-06-14] MEDS: LORazepam 2 MG TABLET PO PRN (13:31)
[2023-06-14] MEDS: HALOPERIDOL 5 MG TABLET PO PRN (13:31)
[2023-06-14] MEDS: BENZTROPINE MESYLATE 2 MG TABLET PO SCH (20:51)
[2023-06-14] MEDS: FluPHENAZine HCL 10 MG TABLET PO SCH (21:00)
[2023-06-14 23:45] VITALS: BP 110/75; PULSE 81; RESP 18; TEMP 97.6; O2SAT 97
[2023-06-15 09:11] LABS: CHOL/HDL RATIO 2.9 (4.2-7.3); FREE T4 (FREE THYROXINE) 1.54 ng/dL (0.76-1.46); THYROID STIMULATING HORMONE 1.17 uIU/mL (0.36-3.74)
[2023-06-15 09:32] VITALS: BP 123/73; PULSE 87; RESP 18; TEMP 97.8; O2SAT 99
[2023-06-15] MEDS: LORazepam 2 MG TABLET PO PRN (10:35)
[2023-06-15] MEDS: BENZTROPINE MESYLATE 2 MG TABLET PO SCH (20:20)
[2023-06-15] MEDS: FluPHENAZine HCL 10 MG TABLET PO SCH (20:24)
[2023-06-15 20:35] VITALS: RESP 20; TEMP 98
[2023-06-16 08:59] VITALS: BP 117/74; PULSE 62; RESP 18; TEMP 96.9; O2SAT 95
[2023-06-16] MEDS: LORazepam 2 MG TABLET PO PRN ×2 (09:49→16:40)
[2023-06-16] MEDS: BENZTROPINE MESYLATE 2 MG TABLET PO SCH (20:31)
[2023-06-16] MEDS: FluPHENAZine HCL 10 MG TABLET PO SCH (20:32)
[2023-06-17 05:44] VITALS: BP 119/70; PULSE 65; RESP 18; TEMP 97.5; O2SAT 97
[2023-06-17 08:41] VITALS: BP 104/79; PULSE 97; RESP 17; TEMP 98.8; O2SAT 97
[2023-06-17] MEDS: LORazepam 2 MG TABLET PO PRN ×2 (09:14→16:02)
[2023-06-17] MEDS: BENZTROPINE MESYLATE 2 MG TABLET PO SCH (20:34)
[2023-06-17 20:40] VITALS: BP 111/69; PULSE 88; RESP 19; TEMP 98.6; O2SAT 99
[2023-06-17] MEDS: FluPHENAZine HCL 10 MG TABLET PO SCH (21:00)
[2023-06-18] MEDS: LORazepam 2 MG TABLET PO PRN (08:25)
[2023-06-18 08:57] VITALS: BP 113/70; PULSE 84; RESP 19; TEMP 98.8; O2SAT 99
[2023-06-18] MEDS ORDERED: LORazepam 2 MG/ML VIAL IM ONE (10:45)
[2023-06-18] MEDS ORDERED: HALOPERIDOL LACTATE 5 MG/ML VIAL IM ONE (10:45)
[2023-06-18] MEDS ORDERED: DiphenhydrAMINE HCL 50 MG/ML VIAL IM ONE (10:45)
[2023-06-18] MEDS: FluPHENAZine HCL 10 MG TABLET PO SCH (20:49)
[2023-06-18] MEDS: BENZTROPINE MESYLATE 2 MG TABLET PO SCH (20:49)
[2023-06-18 21:38] VITALS: BP 136/74; PULSE 75; RESP 18; TEMP 97.8; O2SAT 99
[2023-06-19] MEDS: HALOPERIDOL 5 MG TABLET PO PRN ×2 (08:39→17:00)
[2023-06-19] MEDS: LORazepam 2 MG TABLET PO PRN ×2 (08:39→17:01)
[2023-06-19 10:00] VITALS: BP 112/76; PULSE 74; RESP 18; TEMP 97.5; O2SAT 98
[2023-06-19] MEDS: FluPHENAZine HCL 10 MG TABLET PO SCH (20:53)
[2023-06-19] MEDS: BENZTROPINE MESYLATE 2 MG TABLET PO SCH (20:53)
[2023-06-19 21:23] VITALS: RESP 18
[2023-06-20 08:21] VITALS: BP 145/89; PULSE 109; RESP 18; TEMP 98.2
[2023-06-20] MEDS: LORazepam 2 MG TABLET PO PRN ×2 (16:41→20:44)
[2023-06-20] MEDS: HALOPERIDOL 5 MG TABLET PO PRN (16:41)
[2023-06-20 20:25] VITALS: BP 102/58; PULSE 94; RESP 18; TEMP 98.2; O2SAT 99
[2023-06-20] MEDS: FluPHENAZine HCL 10 MG TABLET PO SCH (20:43)
[2023-06-20] MEDS: BENZTROPINE MESYLATE 2 MG TABLET PO SCH (20:43)
[2023-06-21 08:38] VITALS: BP 137/87; PULSE 97; RESP 18; TEMP 97.9; O2SAT 99
[2023-06-21] MEDS: HALOPERIDOL 5 MG TABLET PO PRN (16:35)
[2023-06-21] MEDS: LORazepam 2 MG TABLET PO PRN (16:35)
[2023-06-21] MEDS: BENZTROPINE MESYLATE 2 MG TABLET PO SCH (20:44)
[2023-06-21] MEDS: FluPHENAZine HCL 10 MG TABLET PO SCH (20:44)
[2023-06-22 02:16] VITALS: BP 136/76; PULSE 80; RESP 16; TEMP 97.6; O2SAT 100
[2023-06-22 08:01] VITALS: BP 98/54; PULSE 85; RESP 17; TEMP 97.9; O2SAT 98
[2023-06-22] MEDS: BENZTROPINE MESYLATE 2 MG TABLET PO SCH (20:08)
[2023-06-22] MEDS: FluPHENAZine HCL 10 MG TABLET PO SCH (20:08)
[2023-06-22 20:40] VITALS: BP 116/76; PULSE 82; RESP 18; TEMP 97.2; O2SAT 96
[2023-06-23 08:08] VITALS: BP 139/77; PULSE 86; RESP 18; TEMP 98.5; O2SAT 98
[2023-06-23] MEDS: FluPHENAZine HCL 10 MG TABLET PO SCH (20:46)
[2023-06-23] MEDS: BENZTROPINE MESYLATE 2 MG TABLET PO SCH (20:46)
[2023-06-24] VITALS: RESP 16
[2023-06-24 08:40] VITALS: BP 122/73; PULSE 70; RESP 18; TEMP 97.8; O2SAT 100
[2023-06-24] MEDS ORDERED: CALCIUM CARBONATE 500 MG CHEWABLE TABLET CHEW PRN (15:30)
[2023-06-24] MEDS: HALOPERIDOL 5 MG TABLET PO PRN (18:57)
[2023-06-24] MEDS ORDERED: ZOLPIDEM TARTRATE 10 MG TABLET PO PRN (19:15)
[2023-06-24] MEDS: BENZTROPINE MESYLATE 2 MG TABLET PO SCH (20:36)
[2023-06-24] MEDS: FluPHENAZine HCL 10 MG TABLET PO SCH (20:36)
[2023-06-24 21:00] VITALS: BP 120/68; PULSE 68; RESP 16; TEMP 98; O2SAT 98
[2023-06-25 08:43] VITALS: BP 122/79; PULSE 86; RESP 18; TEMP 97.2; O2SAT 98
[2023-06-25] MEDS: FluPHENAZine HCL 10 MG TABLET PO SCH (20:55)
[2023-06-25] MEDS: BENZTROPINE MESYLATE 2 MG TABLET PO SCH (20:55)
[2023-06-25 23:51] VITALS: RESP 18
[2023-06-26 09:17] VITALS: BP 119/60; PULSE 95; RESP 17; TEMP 97.8; O2SAT 95
[2023-06-26] MEDS: BENZTROPINE MESYLATE 2 MG TABLET PO SCH (21:03)
[2023-06-26] MEDS: FluPHENAZine HCL 10 MG TABLET PO SCH (21:04)
[2023-06-26 22:48] VITALS: BP 106/62; PULSE 81; RESP 18; TEMP 98.1; O2SAT 95
[2023-06-27 08:25] VITALS: BP 118/76; PULSE 80; RESP 16; TEMP 97.7; O2SAT 97
[2023-06-27 20:16] VITALS: BP 121/84; PULSE 93; RESP 18; TEMP 97.8
[2023-06-27] MEDS: BENZTROPINE MESYLATE 2 MG TABLET PO SCH (20:30)
[2023-06-27] MEDS: FluPHENAZine HCL 10 MG TABLET PO SCH (20:30)
[2023-06-28 08:19] VITALS: BP 109/64; PULSE 100; RESP 17; TEMP 98; O2SAT 100
[2023-06-28 20:58] VITALS: BP 112/72; PULSE 88; RESP 18; TEMP 97.5; O2SAT 96
[2023-06-28] MEDS: FluPHENAZine HCL 10 MG TABLET PO SCH (21:07)
[2023-06-28] MEDS: BENZTROPINE MESYLATE 2 MG TABLET PO SCH (21:07)
[2023-06-29 08:05] VITALS: BP 110/73; PULSE 97; RESP 17; TEMP 97.6; O2SAT 95
== END 2023-06-29 11:44 | disposition home or self-care (01) | DRG 750 ==
LOC: EMS 16:39 → B2S 06-12 08:48 → B3A 06-18 11:00
PROVIDERS: ADMIT Psychiatry & Neurology Psychiatry; ATTEND Psychiatry & Neurology Psychiatry
DX: F20.9 Schizophrenia, unspecified (principal); F10.90 Alcohol use, unspecified, uncomplicated; F41.9 Anxiety disorder, unspecified; G47.00 Insomnia, unspecified; F94.0 Selective mutism; K59.00 Constipation, unspecified; Z20.822 Contact with and (suspected) exposure to COVID-19; F12.90 Cannabis use, unspecified, uncomplicated; Z81.8 Family history of other mental and behavioral disorders
CPT/HCPCS: 80053; 80061; 84439; 84443; 85025; 87081; G0480; J1200; J1630; J2060

== ENCOUNTER 2023-08-19 01:44 | Inpatient (IN) | payer MEDICAID, OTHER ==
[~2023-08-19] VITALS: Ht 175.3 cm; Wt 99.8 kg
[2023-08-19] MEDS: LORazepam 2 MG/ML VIAL IM ONE (02:23)
[2023-08-19] MEDS: HALOPERIDOL LACTATE 5 MG/ML VIAL IM ONE (02:23)
[2023-08-19] MEDS: DiphenhydrAMINE HCL 50 MG/ML VIAL IM ONE (02:23)
[2023-08-19 03:08] LABS: COVID AG,FIA SOURCE NASAL SWAB
[2023-08-19 03:19] LABS: SARS-COV2 (COVID) ANTIGEN,FIA Negative (Negative)
[2023-08-19 05:10] VITALS: BP 110/57; PULSE 87; RESP 18; TEMP 97.5; O2SAT 100
[2023-08-19] MEDS ORDERED: BENZOCAINE/MENTHOL LOZENGE PO PRN (06:45)
[2023-08-19] MEDS ORDERED: ACETAMINOPHEN 325 MG TABLET PO PRN (06:45)
[2023-08-19] MEDS ORDERED: MAG HYDROX/ALUMINUM HYD/SIMETH ES 30 ML SUSPENSION UDCUP PO PRN (06:45)
[2023-08-19] MEDS ORDERED: CloNIDine HCL 0.1 MG TABLET PO PRN (06:45)
[2023-08-19] MEDS ORDERED: LOPERAMIDE HCL 2 MG CAPSULE PO PRN (06:45)
[2023-08-19] MEDS ORDERED: MAGNESIUM HYDROXIDE SUSPENSION 30 ML UDCUP PO PRN (06:45)
[2023-08-19] MEDS ORDERED: ALBUTEROL SULFATE HFA 90 MCG/PUFF 8 GM INHALER IH PRN (06:45)
[2023-08-19] MEDS ORDERED: ONDANSETRON HCL 4 MG TABLET PO PRN (06:45)
[2023-08-19] MEDS ORDERED: IBUPROFEN 600 MG TABLET PO PRN (06:45)
[2023-08-19] MEDS ORDERED: DOCUSATE SODIUM 100 MG CAPSULE PO PRN (06:45)
[2023-08-19] MEDS ORDERED: PETROLATUM,WHITE 28 GM JELLY TP PRN (06:45)
[2023-08-19] MEDS ORDERED: OMEPRAZOLE 20 MG CAPSULE PO PRN (06:45)
[2023-08-19] MEDS ORDERED: BACITRACIN 28 GM OINTMENT TP PRN (06:45)
[2023-08-19 08:10] VITALS: BP 138/72; PULSE 100; RESP 18; TEMP 97.6; O2SAT 100
[2023-08-19] MEDS: HALOPERIDOL 5 MG TABLET PO PRN (09:28)
[2023-08-19] MEDS: LORazepam 2 MG TABLET PO PRN (09:28)
[2023-08-19 09:45] VITALS: BP 128/72; PULSE 93; RESP 18; TEMP 98.6; O2SAT 100
[2023-08-19 09:50] VITALS: BP 123/80; PULSE 111; RESP 16; TEMP 98.2; O2SAT 98
[2023-08-19 10:00] VITALS: BP 122/67; PULSE 106; RESP 16; TEMP 98.4; O2SAT 98
[2023-08-19] MEDS: FluPHENAZine HCL 10 MG TABLET PO SCH (20:42)
[2023-08-19] MEDS: BENZTROPINE MESYLATE 2 MG TABLET PO SCH (20:42)
[2023-08-19] MEDS: ZOLPIDEM TARTRATE 10 MG TABLET PO PRN (20:43)
[2023-08-19 22:15] VITALS: RESP 18
[2023-08-20 08:36] VITALS: BP 121/77; PULSE 95; RESP 17; TEMP 97.6; O2SAT 98
[2023-08-20 23:00] VITALS: BP 132/72; PULSE 92; RESP 18; TEMP 97.6; O2SAT 99
[2023-08-21 10:00] VITALS: RESP 17
[2023-08-21 20:28] VITALS: BP 114/73; PULSE 77; RESP 18; TEMP 97.8
[2023-08-21] MEDS: FluPHENAZine HCL 10 MG TABLET PO SCH (20:44)
[2023-08-22 09:43] VITALS: BP 106/68; PULSE 80; RESP 17; TEMP 98; O2SAT 100
[2023-08-22 20:20] VITALS: BP 135/80; PULSE 84; RESP 16; TEMP 98.6; O2SAT 100
[2023-08-23 08:34] VITALS: BP 122/61; PULSE 84; RESP 18; TEMP 97.9; O2SAT 98
[2023-08-23 21:46] VITALS: BP 132/68; PULSE 76; RESP 19; TEMP 97.6; O2SAT 99
[2023-08-24 08:06] LABS: BASOPHILS % (AUTO) 0.3 % (0.0-2.0); EOSINOPHILS % (AUTO) 1.6 % (1.0-6.0); HEMOGLOBIN 14.8 g/dL (13.5-17.5); LYMPHOCYTES # (AUTO) 2.4 K/uL (1.0-4.8); LYMPHOCYTES % (AUTO) 41.4 % (22.0-44.0); MEAN CORPUSCULAR HEMOGLOBIN 29.9 pg (26.0-34.0); MEAN CORPUSCULAR HGB CONC 33.6 G/dL (31.0-37.0); MEAN CORPUSCULAR VOLUME 89 fL (80-100); MONOCYTES # (AUTO) 0.4 K/uL (0.1-1.0); MONOCYTES % (AUTO) 6.2 % (2.0-9.0); NEUTROPHILS # (AUTO) 2.9 K/uL (1.8-7.7); NEUTROPHILS % (AUTO) 50.5 % (40.0-70.0); PLATELET COUNT (AUTO) 296 K/uL (150-450); RED BLOOD CELL COUNT(AUTO) 4.95 MIL/uL (4.50-5.90); RED CELL DISTRIBUTION WIDTH 13.6 % (11.5-14.5); WHITE BLOOD COUNT (AUTO) 5.8 K/uL (4.5-11.0)
[2023-08-24 09:15] VITALS: BP 107/66; PULSE 85; RESP 17; TEMP 97.8; O2SAT 97
[2023-08-24 21:37] VITALS: BP 121/72; PULSE 100; RESP 18; TEMP 97.6; O2SAT 99
[2023-08-25 08:28] VITALS: BP 122/64; PULSE 98; RESP 17; TEMP 97.7; O2SAT 98
[2023-08-25 20:06] VITALS: BP 136/69; PULSE 99; RESP 16; TEMP 97.6; O2SAT 99
[2023-08-26 09:33] VITALS: BP 108/48; PULSE 88; RESP 18; TEMP 98.1; O2SAT 95
[2023-08-26 20:24] VITALS: BP 116/68; PULSE 76; RESP 19; TEMP 98.2; O2SAT 98
[2023-08-27 08:30] VITALS: BP 101/64; PULSE 84; RESP 17; TEMP 97.9; O2SAT 99
[2023-08-27 21:38] VITALS: BP 105/64; PULSE 98; RESP 18; TEMP 98.2; O2SAT 100
[2023-08-28 08:12] VITALS: BP 130/70; PULSE 84; RESP 17; TEMP 98.1; O2SAT 96
== END 2023-08-28 20:02 | disposition home or self-care (01) | DRG 750 ==
LOC: EMS 01:44 → B3A 03:32
PROVIDERS: ADMIT Psychiatry & Neurology Psychiatry; ATTEND Psychiatry & Neurology Psychiatry
DX: F25.1 Schizoaffective disorder, depressive type (principal); F10.90 Alcohol use, unspecified, uncomplicated; F41.9 Anxiety disorder, unspecified; G47.00 Insomnia, unspecified; K59.00 Constipation, unspecified; F12.90 Cannabis use, unspecified, uncomplicated; Z20.822 Contact with and (suspected) exposure to COVID-19
CPT/HCPCS: 85025; 99285; J1200; J1630; J2060

== ENCOUNTER 2023-08-19 10:19 | Emergency (ER) | payer MEDICAID, OTHER ==
[~2023-08-19] VITALS: Ht 175.3 cm; Wt 102.0 kg
[2023-08-19 10:36] VITALS: BP 135/72; PULSE 110; RESP 16; TEMP 98.3
[2023-08-19] MEDS: LIDOCAINE 1% 10 ML VIAL SQ ONE (10:52)
[2023-08-19] MEDS: PERTUSS(ACELL),DIPH,TET VAC/PF 0.5 ML SYRINGE IM. ONE (10:52)
== END 2023-08-19 14:46 | disposition home or self-care (01) ==
LOC: EMS 10:26
DX: S01.111A Laceration without foreign body of right eyelid and periocular area, initial encounter (principal); S09.90XA Unspecified injury of head, initial encounter; F32.A Depression, unspecified; F20.9 Schizophrenia, unspecified; W01.0XXA Fall on same level from slipping, tripping and stumbling without subsequent striking against object, initial encounter; Y93.89 Activity, other specified; Y92.89 Other specified places as the place of occurrence of the external cause; Y99.8 Other external cause status
CPT/HCPCS: 12011; 99283

== ENCOUNTER 2023-11-14 03:52 | Inpatient (IN) | payer MEDICAID, OTHER ==
[~2023-11-14] VITALS: Ht 175.3 cm; Wt 100.7 kg
[2023-11-14] MEDS ORDERED: OLANZapine 5 MG RAPDIS TABLET PO PRN (05:15)
[2023-11-14] MEDS ORDERED: ZOLPIDEM TARTRATE 10 MG TABLET PO PRN (05:15)
[2023-11-14] MEDS: LORazepam 2 MG/ML VIAL IM ONE ×2 (05:26→10:08)
[2023-11-14] MEDS: HALOPERIDOL LACTATE 5 MG/ML VIAL IM ONE (05:27)
[2023-11-14] MEDS: DiphenhydrAMINE HCL 50 MG/ML VIAL IM ONE (05:27)
[2023-11-14 05:51] LABS: COVID AG,FIA SOURCE NASAL SWAB
[2023-11-14 05:54] LABS: BASOPHILS % (AUTO) 0.2 % (0.0-2.0); EOSINOPHILS % (AUTO) 0.7 % (1.0-6.0); HEMATOCRIT 41.2 % (41-53); LYMPHOCYTES # (AUTO) 1.5 K/uL (1.0-4.8); LYMPHOCYTES % (AUTO) 18.1 % (22.0-44.0); MEAN CORPUSCULAR VOLUME 88 fL (80-100); MONOCYTES # (AUTO) 0.5 K/uL (0.1-1.0); MONOCYTES % (AUTO) 6.1 % (2.0-9.0); NEUTROPHILS # (AUTO) 6.4 K/uL (1.8-7.7); NEUTROPHILS % (AUTO) 74.9 % (40.0-70.0); PLATELET COUNT (AUTO) 272 K/uL (150-450); RED BLOOD CELL COUNT(AUTO) 4.67 MIL/uL (4.50-5.90); RED CELL DISTRIBUTION WIDTH 13.3 % (11.5-14.5); WHITE BLOOD COUNT (AUTO) 8.5 K/uL (4.5-11.0)
[2023-11-14 06:04] LABS: ANION GAP 9 mmol/L (8-16); CALCIUM, TOTAL 8.3 mg/dL (8.8-10.5); CARBON DIOXIDE 26 mmol/L (22-29); CHLORIDE 106 mmol/L (98-107); CREATININE 0.84 mg/dL (0.60-1.30); GLOMERULAR FILTR. RATE CALC > 60 mL/min (>60); GLUCOSE,RANDOM 132 mg/dL (70-110); POTASSIUM 3.5 mmol/L (3.5-5.1); SODIUM SERUM 141 mmol/L (136-145); UREA NITROGEN, BLOOD 13 mg/dL (7-18)
[2023-11-14 06:10] LABS: ALANINE AMINOTRANSFERASE 52 U/L (12-78); ALBUMIN 3.6 g/dL (3.4-5.0); ALKALINE PHOSPHATASE 99 U/L (46-116); ASPARTATE AMINOTRANSFERASE 21 U/L (15-37); BILIRUBIN,TOTAL 0.3 mg/dL (0.1-1.0); TOTAL PROTEIN, SERUM 7.9 g/dL (6.4-8.2)
[2023-11-14 06:12] LABS: SARS-COV2 (COVID) ANTIGEN,FIA Negative (Negative)
[2023-11-14 06:20] LABS: ALCOHOL, BLOOD (SERUM) < 3 mg/dL (0-10)
[2023-11-14] MEDS ORDERED: PROMETHAZINE HCL 25 MG TABLET PO PRN (16:15)
[2023-11-14] MEDS ORDERED: PALIPERIDONE PALMITATE 234 MG/1.5 ML SYRINGE IM ONE (16:15)
[2023-11-14] MEDS ORDERED: LOPERAMIDE HCL 2 MG CAPSULE PO PRN (16:15)
[2023-11-14] MEDS ORDERED: GuaiFENesin/D-METHORPHAN [SUGAR-FREE] 200-20MG/10 ML SYRUP UDCUP PO PRN (16:15)
[2023-11-14] MEDS ORDERED: MAG HYDROX/ALUMINUM HYD/SIMETH ES 30 ML SUSPENSION UDCUP PO PRN (16:15)
[2023-11-14] MEDS ORDERED: TUBERCULIN, PURIFIED PROTEIN DERIVATIVE 5 TU/0.1 ML SYRINGE ID ONE (16:15)
[2023-11-14] MEDS ORDERED: MAGNESIUM HYDROXIDE SUSPENSION 30 ML UDCUP PO PRN (16:15)
[2023-11-14] MEDS ORDERED: ACETAMINOPHEN 325 MG TABLET PO PRN (16:15)
[2023-11-14] MEDS ORDERED: HydrOXYzine PAMOATE 50 MG CAPSULE PO PRN (16:15)
[2023-11-14 16:32] VITALS: BP 135/90; PULSE 90; RESP 18; TEMP 97.6; O2SAT 98
[2023-11-14] MEDS: THIAMINE 100 MG TABLET PO SCH (17:00)
[2023-11-14] MEDS: OLANZapine 5 MG RAPDIS TABLET PO SCH (21:00)
[2023-11-14] MEDS: MELATONIN 5 MG TABLET PO SCH (21:00)
[2023-11-14] MEDS ORDERED: BISACODYL 5 MG EC TABLET PO PRN (21:15)
[2023-11-15] VITALS (7 sets, daily range): BP systolic 113–154; BP diastolic 76–94; PULSE 91–106; RESP 16–18; TEMP 97.6–97.8; O2SAT 96–97
[2023-11-15 08:25] LABS: HEMOGLOBIN A1C 5.4 % (3.8-5.6)
[2023-11-15 08:38] LABS: CHOL/HDL RATIO 2.6 (4.2-7.3); FREE T4 (FREE THYROXINE) 1.41 ng/dL (0.76-1.46); THYROID STIMULATING HORMONE 3.12 uIU/mL (0.36-3.74)
[2023-11-15] MEDS: MULTIVITAMINS WITH MINERALS, THERAPEUTIC TABLET PO SCH (09:00)
[2023-11-15] MEDS: OMEGA-3/DHA/EPA/FISH OIL 1,000 MG CAPSULE PO SCH (09:00)
[2023-11-15] MEDS: FOLIC ACID 1 MG TABLET PO SCH (09:00)
[2023-11-15] MEDS: NALTREXONE HCL 50 MG TABLET PO SCH (09:00)
[2023-11-15] MEDS: PALIPERIDONE PALMITATE 234 MG/1.5 ML SYRINGE IM ONE (11:11)
[2023-11-16 08:25] VITALS: RESP 16
[2023-11-16 10:24] VITALS: BP 115/73; RESP 18; TEMP 97.6; O2SAT 98
[2023-11-16] MEDS: LORazepam 2 MG TABLET PO PRN (17:58)
[2023-11-16 20:59] VITALS: BP 119/73; PULSE 90; TEMP 97.4; O2SAT 97
[2023-11-17 08:54] VITALS: RESP 19
[2023-11-17] MEDS: OLANZapine 10 MG RAPDIS TABLET PO SCH (21:37)
[2023-11-18 00:59] VITALS: RESP 18
[2023-11-18 10:19] VITALS: BP 122/79; PULSE 80; RESP 18; TEMP 97.8; O2SAT 97
[2023-11-18 22:29] VITALS: BP 126/70; PULSE 78; RESP 16; TEMP 97.8; O2SAT 95
[2023-11-19 11:06] VITALS: RESP 18; TEMP 97.4
[2023-11-19] MEDS: PALIPERIDONE PALMITATE 156 MG/ML SYRINGE IM ONE (11:27)
[2023-11-19 20:12] VITALS: BP 121/69; PULSE 84; TEMP 98; O2SAT 95
[2023-11-20 09:09] VITALS: BP 137/81; PULSE 90; RESP 16; TEMP 97.7; O2SAT 98
[2023-11-20] MEDS ORDERED: PALI117D IM (10:54)
[2023-11-20] MEDS ORDERED: NALT50TA33 PO (10:54)
[2023-11-20] MEDS ORDERED: OMEG-135 PO (10:54)
[2023-11-20] MEDS ORDERED: MELA5TAB40 PO (10:54)
== END 2023-11-20 17:45 | disposition home or self-care (01) | DRG 750 ==
LOC: EMS 03:53 → B2S 13:50 → B3A 11-15 09:39
PROVIDERS: ADMIT Psychiatry & Neurology Psychiatry; ATTEND Psychiatry & Neurology Psychiatry
DX: F20.0 Paranoid schizophrenia (principal); F10.90 Alcohol use, unspecified, uncomplicated; K59.00 Constipation, unspecified; R73.9 Hyperglycemia, unspecified; Z20.822 Contact with and (suspected) exposure to COVID-19; Y90.9 Presence of alcohol in blood, level not specified; F12.90 Cannabis use, unspecified, uncomplicated; G47.00 Insomnia, unspecified; F32.A Depression, unspecified; F17.200 Nicotine dependence, unspecified, uncomplicated; Z55.9 Problems related to education and literacy, unspecified; Z81.8 Family history of other mental and behavioral disorders; Z59.9 Problem related to housing and economic circumstances, unspecified; Z74.01 Bed confinement status; Z63.9 Problem related to primary support group, unspecified; Z65.3 Problems related to other legal circumstances
CPT/HCPCS: 80053; 80061; 83036; 84439; 84443; 85025; 86592; G0480; J1200; J1630; J2060; Q9967

== ENCOUNTER 2023-11-15 21:30 | Emergency (ER) | payer MEDICAID, OTHER ==
[~2023-11-15] VITALS: Ht 188 cm; Wt 100.0 kg
[2023-11-15 23:26] VITALS: BP 132/79; PULSE 91; RESP 16; TEMP 97.9
[2023-11-16 00:46] LABS: BASOPHILS % (AUTO) 0.4 % (0.0-2.0); EOSINOPHILS % (AUTO) 0.9 % (1.0-6.0); HEMATOCRIT 40.7 % (41-53); HEMOGLOBIN 13.9 g/dL (13.5-17.5); LYMPHOCYTES # (AUTO) 2.2 K/uL (1.0-4.8); LYMPHOCYTES % (AUTO) 27.1 % (22.0-44.0); MEAN CORPUSCULAR HEMOGLOBIN 30.1 pg (26.0-34.0); MEAN CORPUSCULAR HGB CONC 34.2 G/dL (31.0-37.0); MEAN CORPUSCULAR VOLUME 88 fL (80-100); MONOCYTES # (AUTO) 0.7 K/uL (0.1-1.0); MONOCYTES % (AUTO) 8.6 % (2.0-9.0); PLATELET COUNT (AUTO) 286 K/uL (150-450); RED BLOOD CELL COUNT(AUTO) 4.62 MIL/uL (4.50-5.90); RED CELL DISTRIBUTION WIDTH 13.1 % (11.5-14.5); WHITE BLOOD COUNT (AUTO) 7.9 K/uL (4.5-11.0)
[2023-11-16 00:55] LABS: ANION GAP 7 mmol/L (8-16); CALCIUM, TOTAL 8.4 mg/dL (8.8-10.5); CARBON DIOXIDE 30 mmol/L (22-29); CHLORIDE 102 mmol/L (98-107); CREATININE 0.74 mg/dL (0.60-1.30); GLOMERULAR FILTR. RATE CALC > 60 mL/min (>60); GLUCOSE,RANDOM 107 mg/dL (70-110); POTASSIUM 3.6 mmol/L (3.5-5.1); SODIUM SERUM 139 mmol/L (136-145); UREA NITROGEN, BLOOD 12 mg/dL (7-18)
[2023-11-16 01:04] LABS: ALANINE AMINOTRANSFERASE 65 U/L (12-78); ALBUMIN 3.5 g/dL (3.4-5.0); ALKALINE PHOSPHATASE 97 U/L (46-116); ASPARTATE AMINOTRANSFERASE 33 U/L (15-37); BILIRUBIN,TOTAL 0.4 mg/dL (0.1-1.0); TOTAL PROTEIN, SERUM 7.8 g/dL (6.4-8.2)
[2023-11-16] MEDS ORDERED: DiphenhydrAMINE HCL 50 MG/ML VIAL ONE (01:21)
[2023-11-16] MEDS: LORazepam 2 MG/ML VIAL IM ONE (01:25)
[2023-11-16] MEDS: HALOPERIDOL LACTATE 5 MG/ML VIAL IM ONE (01:25)
[2023-11-16] MEDS: DiphenhydrAMINE HCL 50 MG/ML VIAL IM ONE (01:25)
== END 2023-11-16 01:49 | disposition home or self-care (01) ==
LOC: EMS 21:31
DX: Z04.6 Encounter for general psychiatric examination, requested by authority (principal); F32.A Depression, unspecified; F20.9 Schizophrenia, unspecified
CPT/HCPCS: 99291; 80053; 85025; 36415; 96372; J1200; J1630; J2060

== ENCOUNTER 2024-02-22 12:14 | Inpatient (IN) | payer MEDICAID ==
[~2024-02-22] VITALS: Ht 172.7 cm; Wt 101.9 kg
[~2024-02-22 12:14] MED LIST changes: -BENZ2TAB71 PO; -FLUP10TA28 PO; +MELA5TAB40 PO; +NALT50TA33 PO; +OMEG-135 PO; +PALI117D IM
[2024-02-22 16:22] VITALS: BP 131/80; PULSE 94; RESP 18; TEMP 98.4; O2SAT 97
[2024-02-22 22:32] VITALS: BP 118/51; PULSE 72; RESP 18; TEMP 97.3; O2SAT 99
[2024-02-23] MEDS ORDERED: PETROLATUM,WHITE 28 GM JELLY TP PRN (06:45)
[2024-02-23] MEDS ORDERED: DOCUSATE SODIUM 100 MG CAPSULE PO PRN (06:45)
[2024-02-23] MEDS ORDERED: CloNIDine HCL 0.1 MG TABLET PO PRN (06:45)
[2024-02-23] MEDS ORDERED: ALBUTEROL SULFATE HFA 90 MCG/PUFF 8 GM INHALER IH PRN (06:45)
[2024-02-23] MEDS ORDERED: IBUPROFEN 400 MG TABLET PO PRN (06:45)
[2024-02-23] MEDS ORDERED: MAG HYDROX/ALUMINUM HYD/SIMETH ES 30 ML SUSPENSION UDCUP PO PRN (06:45)
[2024-02-23] MEDS ORDERED: ONDANSETRON 4 MG TABLET PO PRN (06:45)
[2024-02-23] MEDS ORDERED: MAGNESIUM HYDROXIDE SUSPENSION 30 ML UDCUP PO PRN (06:45)
[2024-02-23] MEDS ORDERED: NICOTINE 14 MG/24 HOUR PATCH TD PRN (06:45)
[2024-02-23] MEDS ORDERED: GuaiFENesin/D-METHORPHAN [SUGAR-FREE] 200-20MG/10 ML SYRUP UDCUP PO PRN (06:45)
[2024-02-23] MEDS ORDERED: ACETAMINOPHEN 325 MG TABLET PO PRN (06:45)
[2024-02-23] MEDS ORDERED: LOPERAMIDE HCL 2 MG CAPSULE PO PRN (06:45)
[2024-02-23 08:31] VITALS: BP 119/70; PULSE 71; RESP 17; TEMP 97.9; O2SAT 98
[2024-02-23 08:45] LABS: BAND NEUTROPHILS % (MANUAL) 0 % (0-5)
[2024-02-23 09:08] LABS: HEMATOCRIT 37.9 % (41-53); MEAN CORPUSCULAR HGB CONC 34.2 G/dL (31.0-37.0); MEAN CORPUSCULAR VOLUME 88 fL (80-100); PLATELET COUNT (AUTO) 243 K/uL (150-450); RED BLOOD CELL COUNT(AUTO) 4.32 MIL/uL (4.50-5.90); RED CELL DISTRIBUTION WIDTH 13.2 % (11.5-14.5); WHITE BLOOD COUNT (AUTO) 5.9 K/uL (4.5-11.0)
[2024-02-23 09:18] LABS: HEMOGLOBIN A1C 5.4 % (3.8-5.6)
[2024-02-23 09:27] LABS: ALANINE AMINOTRANSFERASE 52 U/L (12-78); ALBUMIN 3.4 g/dL (3.4-5.0); ALKALINE PHOSPHATASE 88 U/L (46-116); ANION GAP 7 mmol/L (8-16); ASPARTATE AMINOTRANSFERASE 22 U/L (15-37); BILIRUBIN,TOTAL 0.6 mg/dL (0.1-1.0); CALCIUM, TOTAL 8.3 mg/dL (8.8-10.5); CARBON DIOXIDE 28 mmol/L (22-29); CHLORIDE 106 mmol/L (98-107); CHOL/HDL RATIO 2.6 (4.2-7.3); CHOLESTEROL 150 mg/dL (131-200); CREATININE 0.72 mg/dL (0.60-1.30); FREE T4 (FREE THYROXINE) 1.11 ng/dL (0.76-1.46); GLOMERULAR FILTR. RATE CALC > 60 mL/min (>60); GLUCOSE,RANDOM 92 mg/dL (70-110); HDL CHOLESTEROL 57 mg/dL (40-60); LDL CHOL (CALC.) 82 mg/dL (0-130); POTASSIUM 3.6 mmol/L (3.5-5.1); SODIUM SERUM 141 mmol/L (136-145); THYROID STIMULATING HORMONE 2.92 uIU/mL (0.36-3.74); TOTAL PROTEIN, SERUM 7.2 g/dL (6.4-8.2); TRIGLYCERIDES 57 mg/dL (15-150); UREA NITROGEN, BLOOD 11 mg/dL (7-18)
[2024-02-23 09:44] LABS: LYMPHOCYTES % (MANUAL) 26 % (22-44); MONOCYTES % (MANUAL) 12 % (2-9); SEGMENTED NEUTROPHILS % 62 % (40-70); TOTAL CELLS COUNTED 100
[2024-02-23 09:45] LABS: RBC MORPHOLOGY COMMENT NORMAL RBC MORPH
[2024-02-23] MEDS: LORazepam 2 MG TABLET PO PRN (10:40)
[2024-02-23] MEDS: PALIPERIDONE PALMITATE 156 MG/ML SYRINGE IM SCH (15:30)
[2024-02-23 20:29] VITALS: BP 115/52; PULSE 72; RESP 18; TEMP 97.8; O2SAT 98
[2024-02-23] MEDS: MELATONIN 5 MG TABLET PO SCH (20:29)
[2024-02-24 08:05] VITALS: BP 130/75; PULSE 121; RESP 17; TEMP 97.3; O2SAT 96
[2024-02-24] MEDS ORDERED: OLANZapine 10 MG RAPDIS TABLET ONE (10:57)
[2024-02-24] MEDS: OLANZapine 10 MG RAPDIS TABLET PO SCH (11:24)
[2024-02-24] MEDS ORDERED: OLANZapine 10 MG RAPDIS TABLET PO ONE (11:30)
[2024-02-24 14:25] VITALS: PULSE 103; RESP 17; O2SAT 99
[2024-02-24] MEDS ORDERED: LORazepam 2 MG/ML VIAL ONE (16:19)
[2024-02-24] MEDS ORDERED: HALOPERIDOL LACTATE 5 MG/ML VIAL ONE (16:19)
[2024-02-24] MEDS ORDERED: DiphenhydrAMINE HCL 50 MG/ML VIAL ONE (16:21)
[2024-02-24] MEDS: HALOPERIDOL LACTATE 5 MG/ML VIAL IM ONE (16:37)
[2024-02-24] MEDS: DiphenhydrAMINE HCL 50 MG/ML VIAL IM ONE (16:37)
[2024-02-24] MEDS: LORazepam 2 MG/ML VIAL IM ONE (16:37)
[2024-02-24 20:55] VITALS: RESP 16
[2024-02-25 08:28] VITALS: BP 101/54; PULSE 71; RESP 17; TEMP 97.5; O2SAT 94
[2024-02-25 08:28] LABS: APPEARANCE,URINE TURBID (CLEAR); BILIRUBIN,URINE NEGATIVE (NEGATIVE); GLUCOSE, URINE (UA) NEGATIVE (NEGATIVE); LEUKOCYTE ESTERASE ,URINE NEGATIVE (NEGATIVE); NITRATE,URINE NEGATIVE (NEGATIVE); OCCULT BLOOD,URINE TRACE (NEGATIVE); PROTEIN,URINE TRACE mg/dL (NEGATIVE); SPECIFIC GRAVITIY, URINE 1.031 (1.003-1.030); UROBILINOGEN,URINE <=1.0 mg/dL (<=1.0)
[2024-02-25 08:32] LABS: COLOR,URINE YELLOW (YELLOW)
[2024-02-25 08:33] LABS: HEMOGLOBIN A1C 6.4 % (3.8-5.6)
[2024-02-25 08:36] LABS: ALCOHOL, URINE DRUG SCREEN NEGATIVE (NEGATIVE); AMPHET/METH SCREEN,URINE NEGATIVE (NEGATIVE); BARBITURATE SCREEN, URINE NEGATIVE (NEGATIVE); BENZODIAZEPINES SCREEN,URINE NEGATIVE (NEGATIVE); CANNABINOID SCREEN,URINE NEGATIVE (NEGATIVE); COCAINE SCREEN,URINE NEGATIVE (NEGATIVE); METHADONE SCREEN, URINE NEGATIVE (NEGATIVE); OPIATE SCREEN,URINE NEGATIVE (NEGATIVE); PHENCYCLIDINE SCREEN,URINE NEGATIVE (NEGATIVE)
[2024-02-25 08:39] LABS: AMORPHOUS SEDIMENT,UR Many /LPF (None Seen); BACTERIA,URINE None Seen /HPF (None Seen); CALCIUM OXALATE CRYSTALS,UR Few /LPF (None Seen); RBC,URINE None Seen /HPF (0-2); SQUAMOUS EPITHELIAL CELL,UR Few /LPF (None Seen); WBC,URINE None Seen /HPF (0-5)
[2024-02-25 08:43] LABS: CHOL/HDL RATIO 2.7 (4.2-7.3); THYROID STIMULATING HORMONE 1.23 uIU/mL (0.36-3.74)
[2024-02-25 20:21] VITALS: BP 135/54; PULSE 73; RESP 20; TEMP 98.4; O2SAT 98
[2024-02-25] MEDS: OLANZapine 10 MG RAPDIS TABLET PO ONE (21:03)
[2024-02-26 08:12] VITALS: RESP 18
[2024-02-26 20:16] VITALS: BP 124/64; PULSE 64; RESP 17; TEMP 97.7; O2SAT 98
[2024-02-26] MEDS: OLANZapine 10 MG RAPDIS TABLET PO SCH (20:36)
[2024-02-27 08:18] VITALS: BP 116/64; PULSE 60; RESP 16; TEMP 97.3; O2SAT 96
[2024-02-27] MEDS: TRIAMCINOLONE 0.1% 15 GM OINTMENT TP SCH (17:03)
[2024-02-27 20:15] VITALS: BP 116/68; PULSE 60; RESP 16; TEMP 97.1; O2SAT 96
[2024-02-28 08:22] VITALS: BP 124/74; PULSE 70; RESP 18; TEMP 97.1; O2SAT 98
[2024-02-28 20:28] VITALS: BP 137/69; PULSE 74; RESP 20; TEMP 97.3; O2SAT 95
[2024-02-29 08:19] VITALS: BP 132/59; PULSE 70; RESP 18; TEMP 97.6; O2SAT 99
[2024-02-29 20:46] VITALS: BP 130/80; PULSE 80; RESP 17; TEMP 97.6; O2SAT 100
[2024-03-01 09:13] VITALS: BP 118/61; PULSE 60; RESP 17; TEMP 98.1; O2SAT 98
[2024-03-01 20:41] VITALS: BP 120/63; PULSE 68; RESP 12; TEMP 98.1; O2SAT 99
[2024-03-02 08:12] VITALS: BP 124/65; PULSE 60; RESP 18; TEMP 97.5; O2SAT 97
[2024-03-02 20:27] VITALS: BP 118/72; PULSE 68; RESP 17; TEMP 98; O2SAT 97
[2024-03-02] MEDS: ZOLPIDEM TARTRATE 10 MG TABLET PO PRN (20:34)
[2024-03-03 08:33] VITALS: BP 125/71; PULSE 78; RESP 16; TEMP 97.3; O2SAT 100
[2024-03-03 20:10] VITALS: BP 130/86; PULSE 88; RESP 18; TEMP 97.8; O2SAT 99
[2024-03-04] MEDS: HALOPERIDOL 5 MG TABLET PO PRN (01:34)
[2024-03-04 08:24] VITALS: BP 119/73; PULSE 84; RESP 18; TEMP 97.3; O2SAT 93
[2024-03-04 20:20] VITALS: BP 126/66; PULSE 74; RESP 20; TEMP 97.8; O2SAT 97
[2024-03-05 08:02] VITALS: BP 121/70; PULSE 78; RESP 16; TEMP 97.7; O2SAT 97
[2024-03-05 20:58] VITALS: BP 105/68; PULSE 80; RESP 18; TEMP 97.7; O2SAT 98
[2024-03-06 08:07] VITALS: BP 117/72; PULSE 73; RESP 18; TEMP 97.5; O2SAT 95
[2024-03-06] MEDS ORDERED: OLAN10TA74 PO (10:54)
[2024-03-06] MEDS ORDERED: PALI156D IM ×2 (10:54→13:18)
[2024-03-06] MEDS ORDERED: MELA5TAB40 PO (13:18)
[2024-03-06] MEDS ORDERED: OLAN10TA26 PO (13:18)
== END 2024-03-06 14:15 | disposition home or self-care (01) | DRG 750 ==
LOC: B2S 18:53 → B3A 19:43
PROVIDERS: ADMIT Psychiatry & Neurology Child & Adolescent Psychiatry; ATTEND Psychiatry & Neurology Child & Adolescent Psychiatry
PROC: GZ56ZZZ Individual Psychotherapy, Supportive (ICD-10-PCS; principal; 2024-02-23)
PROC: GZ52ZZZ Individual Psychotherapy, Cognitive (ICD-10-PCS; 2024-02-23)
DX: F20.0 Paranoid schizophrenia (principal); D64.9 Anemia, unspecified; E78.5 Hyperlipidemia, unspecified; G47.00 Insomnia, unspecified; F12.90 Cannabis use, unspecified, uncomplicated
CPT/HCPCS: 80053; 80061; 80307; 81001; 83036; 84439; 84443; 85007; 85027; 86592; J1200; J1630; J2060

== ENCOUNTER 2024-02-22 16:09 | Emergency (ER) | payer MEDICAID, OTHER ==
[~2024-02-22] VITALS: Ht 175.3 cm; Wt 81.8 kg
[2024-02-22 16:22] VITALS: TEMP 98.4
[2024-02-22 18:46] LABS: BASOPHILS % (AUTO) 0.2 % (0.0-2.0); EOSINOPHILS % (AUTO) 0.5 % (1.0-6.0); HEMATOCRIT 39.7 % (41-53); HEMOGLOBIN 13.5 g/dL (13.5-17.5); LYMPHOCYTES # (AUTO) 1.6 K/uL (1.0-4.8); LYMPHOCYTES % (AUTO) 25.5 % (22.0-44.0); MEAN CORPUSCULAR HEMOGLOBIN 29.7 pg (26.0-34.0); MEAN CORPUSCULAR HGB CONC 33.9 G/dL (31.0-37.0); MEAN CORPUSCULAR VOLUME 88 fL (80-100); MONOCYTES # (AUTO) 0.6 K/uL (0.1-1.0); NEUTROPHILS # (AUTO) 4.1 K/uL (1.8-7.7); NEUTROPHILS % (AUTO) 64.8 % (40.0-70.0); PLATELET COUNT (AUTO) 251 K/uL (150-450); RED BLOOD CELL COUNT(AUTO) 4.54 MIL/uL (4.50-5.90); RED CELL DISTRIBUTION WIDTH 13.2 % (11.5-14.5); WHITE BLOOD COUNT (AUTO) 6.3 K/uL (4.5-11.0)
[2024-02-22 18:50] LABS: ANION GAP 10 mmol/L (8-16); CALCIUM, TOTAL 8.4 mg/dL (8.8-10.5); CARBON DIOXIDE 27 mmol/L (22-29); CHLORIDE 105 mmol/L (98-107); CREATININE 0.78 mg/dL (0.60-1.30); GLOMERULAR FILTR. RATE CALC > 60 mL/min (>60); GLUCOSE,RANDOM 101 mg/dL (70-110); POTASSIUM 3.4 mmol/L (3.5-5.1); SODIUM SERUM 142 mmol/L (136-145); UREA NITROGEN, BLOOD 11 mg/dL (7-18)
[2024-02-22 18:59] LABS: COVID AG,FIA SOURCE NASAL SWAB
[2024-02-22 19:20] LABS: ALCOHOL, BLOOD (SERUM) < 3 mg/dL (0-10)
[2024-02-22 19:22] LABS: SARS-COV2 (COVID) ANTIGEN,FIA Negative (Negative)
[2024-02-22] MEDS: POTASSIUM CHLORIDE 20 MEQ ER TABLET PO ONE (19:33)
[2024-02-22 21:11] VITALS: BP 129/83; PULSE 87; RESP 18
== END 2024-02-23 02:44 ==
LOC: EMS 16:09
DX: F20.9 Schizophrenia, unspecified (principal); Z20.822 Contact with and (suspected) exposure to COVID-19
CPT/HCPCS: 99285; 87426; 80048; 85025; 36415; 93005; G0480

== ENCOUNTER 2024-03-19 15:46 | Inpatient (IN) | payer MEDICAID, OTHER ==
[~2024-03-19] VITALS: Ht 182.9 cm; Wt 100.7 kg
[~2024-03-19 15:46] MED LIST changes: -NALT50TA33 PO; +OLAN10TA26 PO; +OLAN10TA74 PO; -OMEG-135 PO; -PALI117D IM; +PALI156D IM
[2024-03-19 21:35] LABS: BASOPHILS % (AUTO) 0.2 % (0.0-2.0); EOSINOPHILS % (AUTO) 0.7 % (1.0-6.0); HEMATOCRIT 40.8 % (41-53); HEMOGLOBIN 13.8 g/dL (13.5-17.5); LYMPHOCYTES # (AUTO) 1.2 K/uL (1.0-4.8); LYMPHOCYTES % (AUTO) 11.4 % (22.0-44.0); MEAN CORPUSCULAR HEMOGLOBIN 29.7 pg (26.0-34.0); MEAN CORPUSCULAR HGB CONC 33.7 G/dL (31.0-37.0); MEAN CORPUSCULAR VOLUME 88 fL (80-100); MONOCYTES # (AUTO) 0.8 K/uL (0.1-1.0); MONOCYTES % (AUTO) 7.5 % (2.0-9.0); NEUTROPHILS # (AUTO) 8.5 K/uL (1.8-7.7); NEUTROPHILS % (AUTO) 80.2 % (40.0-70.0); PLATELET COUNT (AUTO) 229 K/uL (150-450); RED BLOOD CELL COUNT(AUTO) 4.64 MIL/uL (4.50-5.90); RED CELL DISTRIBUTION WIDTH 13.5 % (11.5-14.5); WHITE BLOOD COUNT (AUTO) 10.6 K/uL (4.5-11.0)
[2024-03-19 21:46] LABS: ANION GAP 18 mmol/L (8-16); CALCIUM, TOTAL 8.8 mg/dL (8.8-10.5); CARBON DIOXIDE 25 mmol/L (22-29); CHLORIDE 101 mmol/L (98-107); CREATININE 0.85 mg/dL (0.60-1.30); GLOMERULAR FILTR. RATE CALC > 60 mL/min (>60); GLUCOSE,RANDOM 145 mg/dL (70-110); POTASSIUM 3.4 mmol/L (3.5-5.1); SODIUM SERUM 144 mmol/L (136-145); UREA NITROGEN, BLOOD 15 mg/dL (7-18)
[2024-03-19 21:58] LABS: ALCOHOL, BLOOD (SERUM) < 3 mg/dL (0-10)
[2024-03-19 23:03] LABS: COVID AG,FIA SOURCE NASAL SWAB
[2024-03-19 23:21] LABS: SARS-COV2 (COVID) ANTIGEN,FIA Negative (Negative)
[2024-03-20] MEDS: ONDANSETRON 4 MG TABLET PO ONE (03:18)
[2024-03-20 12:44] LABS: APPEARANCE,URINE CLEAR (CLEAR); BILIRUBIN,URINE NEGATIVE (NEGATIVE); COLOR,URINE YELLOW (YELLOW); GLUCOSE, URINE (UA) NEGATIVE (NEGATIVE); LEUKOCYTE ESTERASE ,URINE NEGATIVE (NEGATIVE); NITRATE,URINE NEGATIVE (NEGATIVE); OCCULT BLOOD,URINE NEGATIVE (NEGATIVE); PROTEIN,URINE 30-70 mg/dL (NEGATIVE); SPECIFIC GRAVITIY, URINE 1.034 (1.003-1.030); UROBILINOGEN,URINE <=1.0 mg/dL (<=1.0)
[2024-03-20] MEDS: HALOPERIDOL 5 MG TABLET PO PRN (13:43)
[2024-03-20] MEDS: LORazepam 2 MG TABLET PO PRN (13:43)
[2024-03-20 15:05] LABS: ALCOHOL, URINE DRUG SCREEN NEGATIVE (NEGATIVE); AMPHET/METH SCREEN,URINE NEGATIVE (NEGATIVE); BARBITURATE SCREEN, URINE NEGATIVE (NEGATIVE); BENZODIAZEPINES SCREEN,URINE NEGATIVE (NEGATIVE); CANNABINOID SCREEN,URINE NEGATIVE (NEGATIVE); COCAINE SCREEN,URINE NEGATIVE (NEGATIVE); METHADONE SCREEN, URINE NEGATIVE (NEGATIVE); OPIATE SCREEN,URINE NEGATIVE (NEGATIVE); PHENCYCLIDINE SCREEN,URINE NEGATIVE (NEGATIVE)
[2024-03-20 15:40] VITALS: BP 152/99; PULSE 100; RESP 18; TEMP 98; O2SAT 100
[2024-03-20 23:06] VITALS: BP 126/87; PULSE 100; RESP 18; TEMP 97.4; O2SAT 100
[2024-03-20 23:08] VITALS: BP 126/87; PULSE 100; RESP 18; TEMP 97.4; O2SAT 100
[2024-03-21 08:30] VITALS: BP 128/78; PULSE 77; RESP 18; TEMP 97; O2SAT 97
[2024-03-21 11:06] VITALS: BP 128/78; PULSE 77; RESP 18; TEMP 97; O2SAT 97
[2024-03-21] MEDS: PALIPERIDONE PALMITATE 156 MG/ML SYRINGE IM SCH (11:37)
[2024-03-21] MEDS ORDERED: CloNIDine HCL 0.1 MG TABLET PO PRN (16:00)
[2024-03-21] MEDS ORDERED: GuaiFENesin/D-METHORPHAN [SUGAR-FREE] 200-20MG/10 ML SYRUP UDCUP PO PRN (16:00)
[2024-03-21] MEDS ORDERED: IBUPROFEN 400 MG TABLET PO PRN (16:00)
[2024-03-21] MEDS ORDERED: DOCUSATE SODIUM 100 MG CAPSULE PO PRN (16:00)
[2024-03-21] MEDS ORDERED: LOPERAMIDE HCL 2 MG CAPSULE PO PRN (16:00)
[2024-03-21] MEDS ORDERED: ALBUTEROL SULFATE HFA 90 MCG/PUFF 8 GM INHALER IH PRN (16:00)
[2024-03-21] MEDS ORDERED: MAG HYDROX/ALUMINUM HYD/SIMETH ES 30 ML SUSPENSION UDCUP PO PRN (16:00)
[2024-03-21] MEDS ORDERED: ONDANSETRON 4 MG TABLET PO PRN (16:00)
[2024-03-21] MEDS ORDERED: PETROLATUM,WHITE 28 GM JELLY TP PRN (16:00)
[2024-03-21] MEDS ORDERED: ACETAMINOPHEN 325 MG TABLET PO PRN (16:00)
[2024-03-21] MEDS ORDERED: NICOTINE 14 MG/24 HOUR PATCH TD PRN (16:00)
[2024-03-21] MEDS ORDERED: MAGNESIUM HYDROXIDE SUSPENSION 30 ML UDCUP PO PRN (16:00)
[2024-03-21] MEDS: MELATONIN 5 MG TABLET PO SCH (20:44)
[2024-03-21] MEDS: OLANZapine 10 MG TABLET PO SCH (20:44)
[2024-03-21 22:00] VITALS: RESP 18
[2024-03-22 08:40] LABS: THYROID STIMULATING HORMONE 1.02 uIU/mL (0.36-3.74)
[2024-03-22 08:41] LABS: HEMOGLOBIN A1C 5.2 % (3.8-5.6)
[2024-03-22 10:56] VITALS: RESP 16
[2024-03-22 11:12] LABS: CHOL/HDL RATIO 2.6 (4.2-7.3)
[2024-03-22] MEDS ORDERED: DiphenhydrAMINE HCL 50 MG/ML VIAL ONE (18:24)
[2024-03-22] MEDS ORDERED: HALOPERIDOL LACTATE 5 MG/ML VIAL ONE (18:25)
[2024-03-22] MEDS: LORazepam 2 MG/ML VIAL IM ONE (19:22)
[2024-03-22] MEDS: DiphenhydrAMINE HCL 50 MG/ML VIAL IM ONE (19:24)
[2024-03-22] MEDS: HALOPERIDOL LACTATE 5 MG/ML VIAL IM ONE (19:24)
[2024-03-22 22:43] VITALS: RESP 18
[2024-03-22] MEDS: ZOLPIDEM TARTRATE 10 MG TABLET PO PRN (23:19)
[2024-03-23 09:41] VITALS: BP 126/75; PULSE 74; RESP 16; TEMP 98.2; O2SAT 96
[2024-03-23 21:28] VITALS: BP 141/89; PULSE 75; RESP 18; TEMP 97.7; O2SAT 96
[2024-03-23 21:35] VITALS: BP 141/89; PULSE 77; RESP 18; TEMP 97.7
[2024-03-24 09:43] VITALS: BP 115/76; PULSE 67; RESP 18; TEMP 98.8; O2SAT 98
[2024-03-24 22:10] VITALS: RESP 18
[2024-03-25 09:37] VITALS: BP 123/67; PULSE 84; RESP 17; TEMP 98.2; O2SAT 100
[2024-03-25 10:09] VITALS: BP 123/67; PULSE 84; RESP 17; TEMP 98.2; O2SAT 100
[2024-03-25] MEDS ORDERED: INFLUENZA VIRUS VACCINE TVS (6MO+) 2024-25/PF 45 MCG/0.5 ML SYRINGE IM. ONE (15:45)
[2024-03-25 21:03] VITALS: BP 121/77; PULSE 86; RESP 18; TEMP 97.1; O2SAT 98
[2024-03-26 09:18] VITALS: BP 115/63; PULSE 66; RESP 17; TEMP 98; O2SAT 95
== END 2024-03-26 18:05 | disposition left against medical advice (07) | DRG 750 ==
LOC: EMS 15:46 → 3EI 03-20 16:42
PROVIDERS: ADMIT Psychiatry & Neurology Child & Adolescent Psychiatry; ATTEND Psychiatry & Neurology Child & Adolescent Psychiatry
PROC: GZHZZZZ Group Psychotherapy (ICD-10-PCS; principal; 2024-03-21)
PROC: GZ58ZZZ Individual Psychotherapy, Cognitive-Behavioral (ICD-10-PCS; 2024-03-21)
PROC: GZ56ZZZ Individual Psychotherapy, Supportive (ICD-10-PCS; 2024-03-21)
DX: F20.0 Paranoid schizophrenia (principal); E78.00 Pure hypercholesterolemia, unspecified; E87.6 Hypokalemia; I10 Essential (primary) hypertension; R73.9 Hyperglycemia, unspecified; Z53.29 Procedure and treatment not carried out because of patient's decision for other reasons; G47.00 Insomnia, unspecified; Z20.822 Contact with and (suspected) exposure to COVID-19; Z91.199 Patient's noncompliance with other medical treatment and regimen due to unspecified reason
CPT/HCPCS: 70450; 80048; 80061; 80307; 81003; 83036; 84132; 84443; 85025; 99285; G0480; J1200; J1630; J2060

== ENCOUNTER 2024-03-27 22:23 | Emergency (ER) | payer MEDICAID, OTHER ==
[~2024-03-27] VITALS: Ht 182.9 cm; Wt 100.0 kg
[2024-03-27 22:30] VITALS: BP 137/91; PULSE 111; RESP 18; TEMP 98.4; O2SAT 93
== END 2024-03-27 22:45 | disposition left against medical advice (07) ==
LOC: EMS 22:26
DX: R44.3 Hallucinations, unspecified (principal); Z53.21 Procedure and treatment not carried out due to patient leaving prior to being seen by health care provider

== ENCOUNTER 2024-04-12 17:13 | Inpatient (IN) | payer MEDICAID, OTHER ==
[~2024-04-12] VITALS: Ht 180.3 cm; Wt 96.8 kg
[2024-04-12 18:47] LABS: COVID AG,FIA SOURCE NASAL SWAB
[2024-04-12 19:08] LABS: SARS-COV2 (COVID) ANTIGEN,FIA Negative (Negative)
[2024-04-12] MEDS: DiphenhydrAMINE HCL 50 MG/ML VIAL IM ONE (19:18)
[2024-04-12] MEDS: HALOPERIDOL LACTATE 5 MG/ML VIAL IM ONE (19:19)
[2024-04-12] MEDS: LORazepam 2 MG/ML VIAL IM ONE (19:20)
[2024-04-12 20:59] LABS: BASOPHILS % (AUTO) 0.3 % (0.0-2.0); EOSINOPHILS % (AUTO) 0.8 % (1.0-6.0); HEMOGLOBIN 13.6 g/dL (13.5-17.5); LYMPHOCYTES % (AUTO) 30.5 % (22.0-44.0); MEAN CORPUSCULAR HEMOGLOBIN 29.7 pg (26.0-34.0); MEAN CORPUSCULAR HGB CONC 33.2 G/dL (31.0-37.0); MEAN CORPUSCULAR VOLUME 89 fL (80-100); MONOCYTES # (AUTO) 0.5 K/uL (0.1-1.0); MONOCYTES % (AUTO) 8.4 % (2.0-9.0); NEUTROPHILS # (AUTO) 3.9 K/uL (1.8-7.7); PLATELET COUNT (AUTO) 253 K/uL (150-450); RED BLOOD CELL COUNT(AUTO) 4.59 MIL/uL (4.50-5.90); RED CELL DISTRIBUTION WIDTH 13.4 % (11.5-14.5); WHITE BLOOD COUNT (AUTO) 6.5 K/uL (4.5-11.0)
[2024-04-12 21:14] LABS: ANION GAP 8 mmol/L (8-16); CALCIUM, TOTAL 8.5 mg/dL (8.8-10.5); CARBON DIOXIDE 29 mmol/L (22-29); CHLORIDE 105 mmol/L (98-107); CREATININE 0.81 mg/dL (0.60-1.30); GLOMERULAR FILTR. RATE CALC > 60 mL/min (>60); GLUCOSE,RANDOM 79 mg/dL (70-110); POTASSIUM 3.5 mmol/L (3.5-5.1); SODIUM SERUM 142 mmol/L (136-145); UREA NITROGEN, BLOOD 14 mg/dL (7-18)
[2024-04-12 21:17] LABS: ALCOHOL, BLOOD (SERUM) < 3 mg/dL (0-10)
[2024-04-13 01:50] VITALS: BP 136/82; PULSE 86; RESP 18; TEMP 98.2
[2024-04-13] MEDS ORDERED: INFLUENZA VIRUS VACCINE TVS (6MO+) 2024-25/PF 45 MCG/0.5 ML SYRINGE IM. ONE (02:30)
[2024-04-13] MEDS ORDERED: NICOTINE 14 MG/24 HOUR PATCH TD PRN (06:45)
[2024-04-13] MEDS ORDERED: ALBUTEROL SULFATE HFA 90 MCG/PUFF 8 GM INHALER IH PRN (06:45)
[2024-04-13] MEDS ORDERED: MAG HYDROX/ALUMINUM HYD/SIMETH ES 30 ML SUSPENSION UDCUP PO PRN (06:45)
[2024-04-13] MEDS ORDERED: DOCUSATE SODIUM 100 MG CAPSULE PO PRN (06:45)
[2024-04-13] MEDS ORDERED: ONDANSETRON 4 MG TABLET PO PRN (06:45)
[2024-04-13] MEDS ORDERED: CloNIDine HCL 0.1 MG TABLET PO PRN (06:45)
[2024-04-13] MEDS ORDERED: IBUPROFEN 400 MG TABLET PO PRN (06:45)
[2024-04-13] MEDS ORDERED: ACETAMINOPHEN 325 MG TABLET PO PRN (06:45)
[2024-04-13] MEDS ORDERED: GuaiFENesin/D-METHORPHAN [SUGAR-FREE] 200-20MG/10 ML SYRUP UDCUP PO PRN (06:45)
[2024-04-13] MEDS ORDERED: PETROLATUM,WHITE 28 GM JELLY TP PRN (06:45)
[2024-04-13] MEDS ORDERED: MAGNESIUM HYDROXIDE SUSPENSION 30 ML UDCUP PO PRN (06:45)
[2024-04-13] MEDS: HALOPERIDOL 5 MG TABLET PO PRN (11:51)
[2024-04-13] MEDS: LORazepam 2 MG TABLET PO PRN (11:51)
[2024-04-13 12:29] VITALS: BP 143/79; PULSE 89; RESP 20; TEMP 97.9; O2SAT 97
[2024-04-13] MEDS: PALIPERIDONE PALMITATE 156 MG/ML SYRINGE IM SCH (12:35)
[2024-04-13] MEDS: OLANZapine 10 MG TABLET PO SCH (21:36)
[2024-04-13 22:16] VITALS: BP 140/85; PULSE 82; RESP 18; TEMP 97.6; O2SAT 98
[2024-04-14 09:32] LABS: CHOL/HDL RATIO 3.1 (4.2-7.3); THYROID STIMULATING HORMONE 2.82 uIU/mL (0.36-3.74)
[2024-04-14 10:31] VITALS: RESP 17
[2024-04-14 20:21] VITALS: RESP 18
[2024-04-15 08:45] VITALS: BP 132/87; PULSE 68; RESP 16; TEMP 97.1; O2SAT 99
[2024-04-15 20:30] VITALS: BP 117/74; PULSE 97; RESP 18; TEMP 97.6; O2SAT 99
[2024-04-16 08:30] VITALS: RESP 17
[2024-04-16 23:00] VITALS: BP 119/79; PULSE 76; RESP 18; TEMP 97.1; O2SAT 98
[2024-04-17 08:30] VITALS: BP 109/61; PULSE 62; RESP 16; TEMP 97.2; O2SAT 97
[2024-04-17 22:33] VITALS: BP 140/95; PULSE 93; RESP 18; TEMP 97.5; O2SAT 99
[2024-04-18 10:05] VITALS: BP 127/76; PULSE 73; RESP 19; TEMP 98; O2SAT 98
[2024-04-18 21:00] VITALS: BP 124/70; PULSE 72; RESP 18; TEMP 98.2; O2SAT 96
[2024-04-18] MEDS: ZOLPIDEM TARTRATE 10 MG TABLET PO PRN (22:27)
[2024-04-19 09:46] VITALS: TEMP 97.2
[2024-04-19 20:35] VITALS: BP 119/81; PULSE 99; RESP 18; TEMP 98.8; O2SAT 95
[2024-04-20 09:03] VITALS: BP 104/66; PULSE 69; RESP 19; O2SAT 98
[2024-04-20 21:29] VITALS: BP 144/95; PULSE 95; RESP 18; TEMP 97.9; O2SAT 99
[2024-04-21 09:10] VITALS: BP 115/74; PULSE 91; RESP 16; TEMP 98.2; O2SAT 100
[2024-04-21 21:23] VITALS: BP 125/59; PULSE 98; RESP 17; TEMP 97.6; O2SAT 98
[2024-04-22 09:49] VITALS: BP 91/50; PULSE 86; RESP 16; O2SAT 99
[2024-04-22 22:21] VITALS: BP 137/89; PULSE 111; RESP 18; TEMP 97.6; O2SAT 98
[2024-04-23 08:30] VITALS: BP 111/69; PULSE 75; RESP 18; TEMP 97.7; O2SAT 98
[2024-04-23 20:00] VITALS: BP 126/72; PULSE 101; RESP 19; TEMP 97.5; O2SAT 100
[2024-04-24 08:40] VITALS: BP 134/83; PULSE 78; RESP 18; TEMP 98; O2SAT 95
[2024-04-24 21:28] VITALS: BP 140/85; PULSE 99; RESP 18; TEMP 97.8; O2SAT 97
[2024-04-25 08:46] VITALS: BP 111/71; PULSE 72; RESP 18; TEMP 97.6; O2SAT 98
[2024-04-25 20:35] VITALS: BP 151/97; PULSE 92; RESP 18; TEMP 97.2; O2SAT 97
[2024-04-26 09:37] VITALS: BP 124/76; PULSE 80; RESP 18; TEMP 97.6; O2SAT 98
[2024-04-26 20:25] VITALS: BP 131/81; PULSE 84; RESP 18; TEMP 97.4; O2SAT 98
[2024-04-27 09:44] VITALS: BP 128/77; PULSE 94; RESP 18; TEMP 97.5; O2SAT 98
[2024-04-27 20:15] VITALS: BP 131/79; PULSE 84; RESP 17; TEMP 98.2; O2SAT 98
[2024-04-28 08:30] VITALS: BP 118/77; PULSE 97; RESP 18; TEMP 97.5; O2SAT 97
[2024-04-28 21:58] VITALS: BP 133/88; PULSE 111; RESP 19; TEMP 98.3; O2SAT 97
[2024-04-29 08:15] VITALS: BP 145/90; PULSE 99; RESP 18; O2SAT 98
[2024-04-29 10:08] VITALS: PULSE 99; RESP 18; TEMP 97.1; O2SAT 100
[2024-04-29 21:35] VITALS: PULSE 104; RESP 18; TEMP 97.4; O2SAT 96
[2024-04-30] MEDS: PALIPERIDONE PALMITATE 234 MG/1.5 ML SYRINGE IM SCH (16:17)
[2024-04-30 21:05] VITALS: BP 157/88; PULSE 104; RESP 18; TEMP 97.6; O2SAT 97
[2024-05-01 11:28] VITALS: BP 128/87; PULSE 71; RESP 18; TEMP 97.6; O2SAT 95
[2024-05-01 21:27] VITALS: BP 114/73; PULSE 77; RESP 18; TEMP 97.4; O2SAT 95
[2024-05-02 09:20] VITALS: BP 123/82; PULSE 88; RESP 16; TEMP 97.7; O2SAT 100
[2024-05-02] MEDS ORDERED: LORazepam 2 MG/ML VIAL ONE (22:49)
[2024-05-02] MEDS: HALOPERIDOL LACTATE 5 MG/ML VIAL IM ONE (23:09)
[2024-05-02] MEDS: LORazepam 2 MG/ML VIAL IM ONE (23:09)
[2024-05-02] MEDS: DiphenhydrAMINE HCL 50 MG/ML VIAL IM ONE (23:10)
[2024-05-02 23:23] VITALS: BP 118/80; PULSE 90; RESP 18; TEMP 97.7; O2SAT 98
[2024-05-03 15:57] VITALS: BP 128/68; RESP 18; TEMP 97.6; O2SAT 98
[2024-05-03 17:08] LABS: ALANINE AMINOTRANSFERASE 48 U/L (12-78); ASPARTATE AMINOTRANSFERASE 20 U/L (15-37)
[2024-05-03 23:52] VITALS: BP 126/70; PULSE 86; RESP 18; TEMP 97.8
[2024-05-04 13:26] VITALS: BP 108/71; PULSE 98; RESP 18; TEMP 97.6; O2SAT 98
[2024-05-04 20:26] VITALS: BP 128/76; PULSE 96; RESP 18; TEMP 98.4; O2SAT 99
[2024-05-05 08:30] VITALS: BP 119/69; PULSE 97; RESP 17; TEMP 98; O2SAT 97
[2024-05-05 20:26] VITALS: BP 129/89; PULSE 69; RESP 18; TEMP 97; O2SAT 100
[2024-05-06] MEDS ORDERED: PALI234D IM (09:28)
[2024-05-06] MEDS ORDERED: OLAN10TA74 PO (09:28)
[2024-05-06 13:58] VITALS: BP 127/92; PULSE 122; RESP 18; TEMP 97.3; O2SAT 96
[2024-05-06 20:42] VITALS: BP 137/57; PULSE 110; RESP 18; TEMP 97.7; O2SAT 97
[2024-05-07] MEDS: LOPERAMIDE HCL 2 MG CAPSULE PO PRN (08:28)
[2024-05-07 08:58] VITALS: BP 125/50; PULSE 90; RESP 17; TEMP 97.5; O2SAT 95
[2024-05-07 20:08] VITALS: RESP 18
[2024-05-08 08:48] VITALS: RESP 18
[2024-05-08 17:04] VITALS: BP 125/65; PULSE 78; RESP 16; TEMP 97.7
[2024-05-08 22:54] VITALS: BP 142/90; PULSE 98; RESP 16; TEMP 97.3
[2024-05-09 08:41] VITALS: RESP 18
[2024-05-09 20:57] VITALS: BP 107/71; PULSE 79; RESP 18; TEMP 97.5; O2SAT 97
[2024-05-10 09:18] VITALS: RESP 17
[2024-05-10 21:46] VITALS: RESP 18
[2024-05-11 11:48] VITALS: RESP 17; TEMP 98
[2024-05-12 08:34] VITALS: BP 100/57; PULSE 80; RESP 18; TEMP 97.8; O2SAT 96
[2024-05-13 10:15] VITALS: BP 104/58; PULSE 66; RESP 18; TEMP 98.3; O2SAT 96
[2024-05-13 20:55] VITALS: BP 139/78; PULSE 77; RESP 18; TEMP 98.7; O2SAT 99
[2024-05-14 10:40] VITALS: BP 128/62; PULSE 71; RESP 18; TEMP 98; O2SAT 99
[2024-05-14 21:41] VITALS: BP 112/76; PULSE 62; RESP 18; TEMP 98.3; O2SAT 100
[2024-05-15 11:15] VITALS: BP 100/62; PULSE 70; RESP 17; TEMP 97.9; O2SAT 97
[2024-05-15 20:10] VITALS: BP 124/84; PULSE 88; RESP 18; TEMP 97.3; O2SAT 100
[2024-05-16 09:00] VITALS: BP 129/88; PULSE 88; RESP 17; TEMP 96.9; O2SAT 99
[2024-05-16] MEDS: OLANZapine 10 MG TABLET PO SCH (13:37)
[2024-05-16 23:00] VITALS: BP 130/69; PULSE 89; RESP 18; TEMP 97.2; O2SAT 98
[2024-05-17 09:57] VITALS: BP 127/79; PULSE 72; RESP 16; TEMP 98; O2SAT 98
[2024-05-17] MEDS ORDERED: OLAN10TA74 PO (12:20)
== END 2024-05-17 16:50 | disposition home or self-care (01) | DRG 750 ==
LOC: EMS 17:15 → 3EC 04-13 02:10 → 3EI 04-15 08:11 → 3EC 05-03 07:04 → 3EI 05-14 17:30 → 3EC 05-14 19:43
PROVIDERS: ADMIT Psychiatry & Neurology Child & Adolescent Psychiatry; ATTEND Psychiatry & Neurology Child & Adolescent Psychiatry
PROC: GZHZZZZ Group Psychotherapy (ICD-10-PCS; principal; 2024-04-13)
PROC: GZ56ZZZ Individual Psychotherapy, Supportive (ICD-10-PCS; 2024-04-13)
DX: F20.0 Paranoid schizophrenia (principal); D64.9 Anemia, unspecified; E66.9 Obesity, unspecified; E78.00 Pure hypercholesterolemia, unspecified; I10 Essential (primary) hypertension; F90.0 Attention-deficit hyperactivity disorder, predominantly inattentive type; R40.0 Somnolence; Z20.822 Contact with and (suspected) exposure to COVID-19; Z68.29 Body mass index [BMI] 29.0-29.9, adult; Z91.199 Patient's noncompliance with other medical treatment and regimen due to unspecified reason
CPT/HCPCS: 70450; 80048; 80061; 83036; 84443; 84450; 84460; 85025; 87081; 99285; G0480; J1200; J1630; J2060